=== PATIENT | female | born 1980 | race Caucasian/White ===

== ENCOUNTER → 2017-08-23 08:44 | Outpatient (CLI) | payer OTHER, SELFPAY ==
[2015-07-04 09:57] VITALS: BMI 33.0
[2015-07-06 18:52] VITALS: BP 120/68
--- NOTE | 2017-08-23 09:11 | RAD_ITS ---
STUDY: X-RAY - LEFT KNEE REASON FOR EXAM: Female, 36 years old. 3 month history of the medial knee pain. TECHNIQUE: 4 view(s) of the knee. COMPARISON: None. FINDINGS: Normal visualized distal femur. Normal visualized proximal tibia and fibula. Normal proximal tibiofibular articulation. Normal medial femorotibial compartment. Normal lateral femorotibial compartment. Normal patellofemoral articulation. The soft tissue structures are unremarkable. RAD/Knee 4 or More Views IMPRESSION: Normal x-ray examination of the knee. Electronically Signed: Maxwell Main MD at 12:46 EST Tel [phone], Service support ,
[2017-08-23 10:14] LABS: Absolute Lymphocyte Count 1.41 X10^3/ul (0.83-4.51); Absolute Neutrophil Count 2.7 X10^3/uL (2.0-7.7); Basophil# 0.02 X10^3/uL; Basophil% 0.4 % (0-1); Eosinophil# 0.09 X10^3/uL; Hematocrit 42.9 % (37-47); Hemoglobin 14.4 g/dl (12.0-15.0); Lymphocyte # 1.41 X10^3/ul (4.0); Lymphocyte % 30.7 % (19-41); Mean Corp Hgb Conc 33.6 g/gl (32-36); Mean Corpuscular Volume 89.4 fL (81-99); Mean Platelet Vol. 10.6 fl (6.2-12.0); Monocyte# 0.41 X10^3/uL; Monocyte% 8.9 % (0-10); Neutrophil # 2.66 X10^3/uL (2.7-7.7); POSITIVE DIFFERENTIAL NO; Platelet Count 197 K/mm3 (150-450); RBC Distribution Width CV 12.7 % (11.6-14.6); White Blood Count 4.6 K/mm3 (4.4-11.0)
[2017-08-23 10:15] LABS: POSITIVE COUNT NO; POSITIVE MORPHOLOGY NO
[2017-08-23 10:41] LABS: ALB/GLOB Ratio 1.4 RATIO (0.9-2.4); AST(SGOT) 8 U/L (15-37); Alanine Aminotransfer ALT/SGPT 23 U/L (13-56); Albumin, Serum 4.2 g/dL (3.2-5.0); Alkaline Phosphatase 47 U/L (45-117); Anion Gap 8 (5-15); BUN 10 mg/dL (7-18); BUN/Creat Ratio 15.3 RATIO (10-20); Calcium,Total 9.2 mg/dL (8.5-10.1); Chloride 102 mmol/L (98-107); Cholesterol 142 mg/dL (200); Creatinine, Serum 0.65 mg/dL (0.55-1.02); EST Glomerular Filtration Rate 107 mL/min (>60); Est Glom Filt Rate - Afr Amer 130 mL/min (>60); Globulin 3.1 g/dL (2.2-4.2); Glucose 90 mg/dL (74-106); High Density Lipoprotein 59 mg/dL; Potassium 4.4 mmol/L (3.5-5.1); Protein, Total 7.3 g/dL (6.4-8.2); Sodium Level 138 mmol/L (136-145); Thyroid Stim Hormone (TSH) 0.62 uIU/mL (0.358-3.74); Triglycerides 81 mg/dL; Very Low Density Lipoprotein 16 mg/dL (5-40)
== END ==
PROVIDERS: Family Provider Family Medicine; PCP Family Medicine; Visit Provider Family Medicine
DX: Z13.0 Encounter for screening for diseases of the blood and blood-forming organs and certain disorders involving the immune mechanism (principal); Z13.220 Encounter for screening for lipoid disorders; F41.9 Anxiety disorder, unspecified; M25.562 Pain in left knee
CPT/HCPCS: 36415; 73564; 80053; 80061; 84443; 85025

== ENCOUNTER → 2018-04-30 16:55 | Outpatient (CLI) | payer OTHER, SELFPAY ==
[2018-05-06 14:39] LABS: HPV Reflexed? NOT INDICATED
== END ==
PROVIDERS: Visit Provider Obstetrics & Gynecology
DX: Z12.4 Encounter for screening for malignant neoplasm of cervix (principal); N83.209 Unspecified ovarian cyst, unspecified side
CPT/HCPCS: 36415; 86304; 88175; G0145

== ENCOUNTER → 2019-04-28 09:26 | Outpatient (CLI) | payer BC, SELFPAY ==
[2015-07-04 09:57] VITALS: BMI 33.0
--- NOTE | 2019-04-28 09:32 | RAD_ITS ---
STUDY: X-RAY - LUMBAR SPINE REASON FOR EXAM: Female, 38 years old. Chronic back pain. TECHNIQUE: 5 view(s) of the lumbar spine were obtained. COMPARISON: None FINDINGS: Normal lumbar lordosis. There is no substantial scoliosis. There is a normal alignment of the vertebrae. Normal vertebral bodies and endplates. Normal disc space heights. IUD and clips in the pelvis. RAD/L/S Spine Min 4 Views IMPRESSION: No abnormality of the lumbosacral spine or visualized pelvis. Electronically Signed: Gokul Bernstein MD at 16:54 EDT , Service support ,
--- NOTE | 2019-04-28 09:32 | RAD_ITS ---
STUDY: X-RAY - SACROILIAC JOINTS REASON FOR EXAM: Female, 38 years old. Chronic back pain. TECHNIQUE: 3 view(s) of the sacroiliac joints were obtained. COMPARISON: None. FINDINGS: Normal bilateral sacroiliac joints. Normal visualized sacral ala and sacrum. Normal visualized iliac bones. IUD in the pelvis. Clips in the pelvis. RAD/S-I Jts 3 or More Views IMPRESSION: No abnormality of the sacroiliac joints. Electronically Signed: Gokul Bernstein MD at 16:54 EDT , Service support ,
== END ==
PROVIDERS: Family Provider Family Medicine; PCP Family Medicine; Referring Provider Family Medicine; Visit Provider Family Medicine
DX: M54.5 Low back pain (principal)
CPT/HCPCS: 72110; 72202

== ENCOUNTER → 2020-01-19 12:30 | Outpatient (CLI) | payer BC, SELFPAY ==
[2015-07-04 09:57] VITALS: BMI 33.0
== END ==
PROVIDERS: PCP Family Medicine; Visit Provider Family Medicine Hospice and Palliative Medicine
DX: Z11.59 Encounter for screening for other viral diseases (principal)
CPT/HCPCS: 87635; G2023; U0003

== ENCOUNTER → 2020-03-09 15:00 | Outpatient (CLI) | payer BC, SELFPAY ==
[2015-07-04 09:57] VITALS: BMI 33.0
[2020-03-15 04:48] LABS: HPV APTIMA, High Risk Negative (Negative); HPV Reflexed? NOT INDICATED
== END ==
PROVIDERS: PCP Family Medicine; Visit Provider Obstetrics & Gynecology
DX: Z12.4 Encounter for screening for malignant neoplasm of cervix (principal)
CPT/HCPCS: 88175; G0145

== ENCOUNTER → 2020-05-09 15:50 | Outpatient (CLI) | payer BC, SELFPAY ==
[2015-07-04 09:57] VITALS: BMI 33.0
--- NOTE | 2020-05-09 15:54 | RAD_ITS ---
STUDY: X-RAY - LUMBAR SPINE REASON FOR EXAM: Female, 39 years old. No back pain extending to the lower legs. TECHNIQUE: 5 view(s) of the lumbar spine were obtained. COMPARISON: None FINDINGS: Normal lumbar lordosis. There is no substantial scoliosis. There is a normal alignment of the vertebrae. Normal vertebral bodies and endplates. Normal disc space heights. There is no demonstrated fracture. There is no demonstrated spondylolysis of the pars interarticulares. There is an IUD in the pelvic region and metallic densities possibly due to previous tubal ligation. RAD/L/S Spine Min 4 Views IMPRESSION: Essentially unremarkable examination. Electronically Signed: Davin Kessler MD at 2:49 EDT Tel , Service support ,
== END ==
LOC: MTRAD 15:52
PROVIDERS: PCP Family Medicine; Referring Provider Nurse Practitioner Family; Visit Provider Nurse Practitioner Family
DX: M54.5 Low back pain (principal)
CPT/HCPCS: 72110

== ENCOUNTER → 2021-02-08 15:09 | Outpatient (CLI) | payer BC, SELFPAY ==
[2015-07-04 09:57] VITALS: BMI 33.0
[2021-02-08 17:41] LABS: Hematocrit 41.3 % (37-47); Hemoglobin 14.2 g/dL (12.0-15.0); Mean Corp Hgb Conc 34.4 g/dL (32-36); Mean Corpuscular Hgb 29.8 pg (27.0-32.0); Mean Corpuscular Volume 86.8 fL (81-99); Mean Platelet Vol. 10.5 fl (6.2-12.0); Platelet Count 262 K/mm3 (150-450); RBC Distribution Width CV 12.5 % (11.6-14.6); Red Blood Count 4.76 M/mm3 (4.2-5.4); White Blood Count 6.6 K/mm3 (4.4-11.0)
[2021-02-08 17:56] LABS: Anion Gap 7 (5-15); BUN 9 mg/dL (7-18); BUN/Creat Ratio 10.5 RATIO (10-20); Calcium,Total 9.3 mg/dL (8.5-10.1); Chloride 105 mmol/L (98-107); Cholesterol 167 mg/dL (200); Creatinine, Serum 0.86 mg/dL (0.55-1.02); EST Glomerular Filtration Rate 77 mL/min (>60); Est Glom Filt Rate - Afr Amer 93 mL/min (>60); Glucose 87 mg/dL (74-106); High Density Lipoprotein 50 mg/dL; Potassium 3.7 mmol/L (3.5-5.1); Sodium Level 139 mmol/L (136-145); Triglycerides 159 mg/dL; Very Low Density Lipoprotein 32 mg/dL (5-40)
== END ==
PROVIDERS: PCP Family Medicine; Referring Provider Nurse Practitioner Family; Visit Provider Nurse Practitioner Family
DX: Z00.00 Encounter for general adult medical examination without abnormal findings (principal); Z13.220 Encounter for screening for lipoid disorders
CPT/HCPCS: 36415; 80048; 80061; 85027

== ENCOUNTER → 2021-07-12 | Outpatient (CLI) | payer BC, SELFPAY ==
[2021-07-19 12:24] LABS: HPV Reflexed? NOT INDICATED
== END | disposition home or self-care (01) ==
LOC: LABSPEC 14:51
PROVIDERS: PCP Family Medicine; Visit Provider Obstetrics & Gynecology
DX: Z12.4 Encounter for screening for malignant neoplasm of cervix (principal)
CPT/HCPCS: 88175; G0145

== ENCOUNTER → 2021-11-07 | Outpatient (CLI) | payer OTHER, SELFPAY ==
--- NOTE | 2021-11-07 08:31 | BI_ITS ---
MAMMOGRAPHY - BILATERAL SCREENING REASON FOR EXAM: Female, 41 years old. Routine annual screening examination. PERTINENT HISTORY: Non-contributory. TECHNIQUE: Digital bilateral breast ollie (3D mammographic acquisition) in the CC and MLO projections. 2-D mediolateral oblique (MLO) and craniocaudad (CC) views of both breasts were obtained. CAD: Full Field Digital Mammography with Computer Added Detection was performed. COMPARISON: None. Baseline examination. FINDINGS: Breast Composition: The breasts are heterogeneously dense, which may obscure small masses. There are no dominant masses or suspicious calcifications. No other significant abnormalities are identified. BI/SCRN MAMM (CAD)W/OLLIE BILAT IMPRESSION: Negative screening mammogram. Yearly followup mammogram recommended. (A) ASSESSMENT CATEGORY: BIRADS Category 1: Negative. A letter regarding these results will be sent to the patient by the facility within 30 days. Approximately 10% of breast cancers are not detected by mammography. A normal mammogram should not delay biopsy of a clinically suspicious abnormality. [id number] Electronically Signed: Zackary Light, at 16:15 EDT ,
== END | disposition home or self-care (01) ==
LOC: OPBI 08:26
PROVIDERS: PCP Family Medicine; Referring Provider Obstetrics & Gynecology; Visit Provider Obstetrics & Gynecology
DX: Z12.31 Encounter for screening mammogram for malignant neoplasm of breast (principal)
CPT/HCPCS: 77063; 77067

== ENCOUNTER → 2022-11-30 | Outpatient (CLI) | payer OTHER, SELFPAY ==
--- NOTE | 2022-11-30 07:39 | BI_ITS ---
MAMMOGRAPHY - BILATERAL SCREENING REASON FOR EXAM: Female, 42 years old. Routine annual screening examination. PERTINENT HISTORY: Non-contributory. TECHNIQUE: Digital bilateral breast ollie (3D mammographic acquisition) in the CC and MLO projections. 2-D mediolateral oblique (MLO) and craniocaudad (CC) views of both breasts were obtained. CAD: Full Field Digital Mammography with Computer Added Detection was performed. COMPARISON: Comparison is made with prior study dated November 07, 2021. FINDINGS: Breast Composition: The breasts are heterogeneously dense, which may obscure small masses. There are no dominant masses or suspicious calcifications. No other significant abnormalities are identified. There has been no significant change since the prior study. BI/SCRN MAMM (CAD)W/OLLIE BILAT IMPRESSION: Stable bilateral screening mammogram. Yearly follow-up mammogram recommended. (A) ASSESSMENT CATEGORY: BIRADS Category 1: Negative. A letter regarding these results will be sent to the patient by the facility within 30 days. Approximately 10% of breast cancers are not detected by mammography. A normal mammogram should not delay biopsy of a clinically suspicious abnormality. [id number] Electronically Signed: Maxwell Main MD at 8:57 EDT ,
== END | disposition home or self-care (01) ==
LOC: OPBI 07:38
PROVIDERS: PCP Family Medicine; Referring Provider Family Medicine; Visit Provider Family Medicine
DX: Z12.31 Encounter for screening mammogram for malignant neoplasm of breast (principal)
CPT/HCPCS: 77063; 77067

== ENCOUNTER 2023-03-29 16:02 | Emergency (ER) | payer OTHER, SELFPAY ==
[2023-03-29 16:04] VITALS: BP 147/88; PULSE 72; RESP 18; TEMP 36.1; O2SAT 99; BMI 27.6
[2023-03-29 16:20] LABS: Absolute Lymphocyte Count 2.52 X10^3/uL (0.83-4.51); Absolute Neutrophil Count 5.5 X10^3/uL (2.0-7.7); Basophil# 0.07 X10^3/uL; Basophil% 0.8 % (0-1); Eosinophil# 0.15 X10^3/uL; Eosinophils% 1.7 % (0-5); Hematocrit 39.9 % (37-47); Hemoglobin 13.8 g/dL (12.0-15.0); Lymphocyte # 2.52 X10^3/ul (0.83-4.51); Lymphocyte % 28.3 % (19-41); Mean Corp Hgb Conc 34.6 g/dL (32-36); Mean Corpuscular Hgb 30.7 pg (27.0-32.0); Mean Corpuscular Volume 88.7 fL (81-99); Mean Platelet Vol. 9.7 fl (6.2-12.0); Monocyte# 0.65 X10^3/uL; Monocyte% 7.3 % (0-10); NRBC Flagged by Analyzer 0 % (0-5); Neutrophil # 5.48 X10^3/uL (2.7-7.7); Neutrophil % 61.7 % (47-70); Platelet Count 274 K/mm3 (150-450); RBC Distribution Width CV 12.6 % (11.6-14.6); RBC Distribution Width SD 41.5 fl (35.1-43.9); White Blood Count 8.9 K/mm3 (4.4-11.0)
[2023-03-29 16:36] LABS: ALB/GLOB Ratio 1.2 RATIO (0.9-2.4); AST(SGOT) 11 U/L (15-37); Alanine Aminotransfer ALT/SGPT 22 U/L (13-56); Alkaline Phosphatase 58 U/L (45-117); Anion Gap 5 (5-15); BUN 10 mg/dL (7-18); BUN/Creat Ratio 14.1 RATIO (10-20); Calcium,Total 9.3 mg/dL (8.5-10.1); Chloride 107 mmol/L (98-107); Creatinine, Serum 0.71 mg/dL (0.55-1.02); EST Glomerular Filtration Rate 95 mL/min (>60); Est Glom Filt Rate - Afr Amer 115 mL/min (>60); Estimated Creatinine Clearance 94.66 ml/min; Globulin 3.2 g/dL (2.2-4.2); Glucose 100 mg/dL (74-106); Potassium 3.9 mmol/L (3.5-5.1); Protein, Total 7.2 g/dL (6.4-8.2); Sodium Level 140 mmol/L (136-145)
--- NOTE | 2023-03-29 16:49 | CT_ITS ---
STUDY: CT ABDOMEN AND PELVIS WITH CONTRAST REASON FOR EXAM: Female, 42 years old. pain low abd and right flank RADIATION DOSAGE (If Supplied By Facility): CTDIvol = ( 16.17 ) mGy, DLP = ( 945.91 ) mGycm TECHNIQUE: Transaxial images were obtained from the dome of the diaphragm to the symphysis pubis without oral contrast. IV 100mL Isovue-300 was administered. Sagittal and coronal images were reconstructed. Individualized dose optimization techniques were used for this CT. COMPARISON: None. FINDINGS: Minor atelectasis within the dependent portion of the lower lungs. The visualized portions of the heart are within normal limits. Liver is normal in size. There are 2 cysts in left lobe. Bile ducts are nondilated. Normal gallbladder and extrahepatic biliary system. Normal spleen. Normal pancreas. Normal bilateral adrenal glands. Normal right kidney. Normal left kidney. Normal visualized stomach. Mild ileus with diffuse fecal retention in colon.. The appendix is visualized and appears normal. Normal abdominal aorta. Normal inferior vena cava. Normal retroperitoneum. Normal urinary bladder. Postop change status post bilateral tubal ligation. There are mild cystic changes in both adnexa and possibility of hydrosalpinx is not excluded.] A large cystic mass in the pelvis measuring approximately 6.12 x 8.25 x6.21 cm likely representing ovarian cyst IUD noted within the uterine canal extending to the level of the fundus Normal abdominal wall. Normal osseous structures. CT/Abdomen/Pelvis W IV Cont ONLY IMPRESSION: Mild ileus with diffuse fecal retention in colon.. Postsurgical changes status post bilateral tubal ligation with mild cystic changes in the adnexa bilaterally with possible coexisting hydrosalpinx.. Large cystic mass in the pelvis likely ovarian. Pelvic sonogram is recommended for further assessment Electronically Signed: Bran Garcia MD at 18:24 EDT ,
--- NOTE | 2023-03-29 16:50 | EDS_ITS ---
HPI HPI - GI History of Present Illness Chief Complaint: Abd Pain Informant: patient Narrative Narrative: Patient presents with abdominal pain. Patient states she was fine till about 2 or so hours ago. She started get pain in her right lower abdomen and her right side and back. She thought she might be constipated because a week or so ago she had been on Percocet for a tooth ache. She had been still moving her bowels though. Patient straining to move her bowels. She was able to move her bowels but the pain increased. She states she is nauseated but has not vomited. She cannot get comfortable. She denies history of kidney stone. She denies any trouble or change in urination. Patient has had an ectopic and tubal removal and then it sounds like she also had tubal ligation on other side. She has an IUD so she does not know when her last menstrual cycle was. She still has her appendix and gallbladder. She reportedly had an ileus once but is not clear exactly the source of this. [facility] Medical History Ileus, unspecified Home Medications cetirizine 10 mg capsule (Zyrtec) 10 mg PO DAILY 01/06/14 [History Last Taken 07/03/15 15:00] docusate sodium 100 mg capsule (DOK) 100 mg PO BID PRN PRN Constipation ##30 07/04/15 [Rx Last Taken Unknown] naproxen 250 mg tablet 1 - 2 mg (0.004 - 0.008 x 250 mg) PO BID PRN PRN Pain ##40 07/04/15 [Rx Last Taken Unknown] naproxen 500 mg tablet 500 mg PO BID #14 tabs 03/29/23 [Rx Last Taken Unknown] ondansetron 4 mg disintegrating tablet 4 mg PO Q8H PRN PRN Nausea #10 tabs 03/29/23 [Rx Last Taken Unknown] oxycodone-acetaminophen 5 mg-325 mg tablet 1 tab PO Q6H PRN PRN Pain 3 days #12 TABLETS 03/29/23 [Rx Last Taken Unknown] Allergy/AdvReac Type Severity Reaction Status Date / Time No Known Allergies Allergy Verified 03/29/23 16:04 Social History Smoking Status: Former smoker ROS ROS ED ROS Narrative A complete review of systems was performed and is negative except as documented in the history of present illness. Some specific details below. Constitutional: No recent fevers or chills. No malaise. She felt perfectly fine until this pain started a couple hours ago EYE: No visual complaints or pain. ENT: No difficulty swallowing. No swelling. No pain. No GERD. CV: No chest pain or palpitations. Respiratory: No dyspnea. No hemoptysis. No difficulty taking breaths. GI: Please see history of present illness. : No frequency dysuria or hematuria. Musculoskeletal: No recent trauma. No pains. Skin: No rash. Nondiaphoretic. Neuro: No weakness or numbness. Endocrine: No polyuria or polydipsia. EXAM Physical Exam Narrative Exam Narrative: CONSTITUTIONAL: Patient is nontoxic in appearance. But the patient does look uncomfortable. She is moving back and forth on the bed. She has trouble sitting still due to the pain. HEENT: No notable trauma. Mucous membranes moist. EYES: No conjunctival injection. No proptosis. No icterus. CARDIOVASCULAR: Regular rate. Regular rhythm. No notable murmur. No JVD. RESPIRATORY: No respiratory distress. Breathing is unlabored. No wheezes. No rho nchi. No rales. No pain with a deep breath. GASTROINTESTINAL: Not distended. Bowel sounds are normal. Despite her discomfort, she does not have any marked tenderness. She does seem to have pain at the right lateral and lower quadrant area but is not notably tender. But she does have some right-sided CVA tenderness. GENITOURINARY: No tenderness over the bladder. She does have right sided CVA t enderness. No skin changes. MUSCULOSKELETAL: Atraumatic. No peripheral edema. No cord. No tenderness along the deep venous system. No asymmetry. NEUROLOGICAL: Patient is alert and appropriate. No focal deficit noted. SKIN: No noted rashes. No diaphoresis. PSYCHIATRIC: Patient is calm. Mood is appropriate. Const Vital Signs: 03/29/23 16:04 03/29/23 17:28 Temperature 96.9 F L Temperature Source Temporal Pulse Rate 72 78 Respiratory Rate 18 14 Blood Pressure 147/88 H 139/78 H Blood Pressure Mean 107 98 Pulse Ox 99 98 Oxygen Delivery Method Room Air Room Air MDM MDM MDM Narrative Medical decision making narrative: Patient CBC is normal. Patient's electrolytes are normal. Patient's liver function test are normal. Patient's lipase normal. Patient's serum is negative. Patient's urinalysis shows no acute process. My independent interpretation of her CT scan of the abdomen does show cystic structure in the pelvis. No sign of obstruction. Final reading did mention mild ileus. However, the patient is moved her bowels today is passing gas and has good bowel sounds and is not distended. She only was nauseated once when the pain was very bad. Patient's ultrasound does show a large 7 cm ovarian cyst but no sign of torsion. Now that the patient has had pain meds she is feeling better. She got several doses. She is now isolating the pain to the right lower abdomen. But she has no fever white count and her appendix is seen and is normal. I think this pain is likely from her cyst. She has a history of a prior cyst on that size even larger than this. She states it was the size of a grapefruit. But they think that likely resolved. That was almost 7 years ago. I think we get the patient home. She is able to eat and drink. She is moving her bowels. She will take senna at home which she has. Increase fluids. I do not think her symptoms really come from the ileus. I will give her Toradol here to see if we get her pain even better. We will give her Naprosyn to go. I will write for some narcotics for the pain but I have encouraged her to try to avoid using this because she has had some constipation recently. If she has worsening pain, distention, vomiting, fevers or any other issues she should return. We did discuss that she needs to follow-up for the cyst. It is certainly possible that this could rupture or it may involute or it may end up needing surgery in the future. Lab Data Attestation: I reviewed the patient's lab results. Labs: Laboratory Results - last 24 hr 03/29/23 03/29/23 03/29/23 16:11 16:50 17:20 WBC 8.9 RBC 4.50 Hgb 13.8 Hct 39.9 MCV 88.7 MCH 30.7 MCHC 34.6 RDW Std Deviation 41.5 RDW Coeff of Dusty 12.6 Plt Count 274 MPV 9.7 Immature Gran % (Auto) 0.200 Neut % (Auto) 61.7 Lymph % (Auto) 28.3 Butts % (Auto) 7.3 Eos % (Auto) 1.7 Baso % (Auto) 0.8 Absolute Neuts (auto) 5.5 Absolute Lymphs (auto) 2.52 Nucleated RBC % 0 Sodium 140 Potassium 3.9 Chloride 107 Carbon Dioxide 28.0 Anion Gap 5 BUN 10 Creatinine 0.71 Estim Creat Clear Calc 94.66 Est GFR (MDRD) Af Amer 115 Est GFR (MDRD) Non-Af 95 BUN/Creatinine Ratio 14.1 Glucose 100 Calcium 9.3 Total Bilirubin 0.20 AST 11 L ALT 22 Alkaline Phosphatase 58 Total Protein 7.2 Albumin 4.0 Globulin 3.2 Albumin/Globulin Ratio 1.2 Lipase 40 Serum , Qual NEGATIVE Urine Color Yellow Urine Clarity Sl. Cloudy Urine pH 7.0 Ur Specific [place] 1.015 Urine Protein 15 H Urine Glucose (UA) Normal Urine Ketones Negative Urine Occult Blood 10 H Urine Nitrite Negative Urine Bilirubin Negative Urine Urobilinogen Normal Ur Leukocyte Esterase 25 H Urine RBC 0 SEEN Urine WBC 0 SEEN Ur Squamous Epith Cells 0-5 SEEN Amorphous Sediment 1+ Urine Bacteria RARE Urine Mucus 0 SEEN Radiography Diagnostic Testing: Clinical Impression(s) from Imaging Studies Abdomen/Pelvis CT 03/29/23 16:49 IMPRESSION: Mild ileus with diffuse fecal retention in colon.. Postsurgical changes status post bilateral tubal ligation with mild cystic changes in the adnexa bilaterally with possible coexisting hydrosalpinx.. Large cystic mass in the pelvis likely ovarian. Pelvic sonogram is recommended for further assessment Electronically Signed: Bran Garcia MD at 18:24 EDT Reading Location ID and State: [place] / [place] Tel [phone], Service support , Transvaginal US 03/29/23 18:32 IMPRESSION: Large right ovarian cyst measuring 7.1 x 7.8 x 4.4 cm. Multiple small cysts in left ovary largest measuring 2.8 x 2.6 x 2.3 cm Electronically Signed: Bran Garcia MD at 19:22 EDT Reading Location ID and State: [place] Tel [phone], Service support , ADDENDUM: 03/29/232005 IMPRESSION: undefined Discharge Plan Triage Chief Complaint: Abd Pain ED Provider: Frankie Arthur Dx/Rx/DC Orders Clinical Impression: Abdominal pain, Cyst of right ovary Instructions: ED Abdominal Pain Unkn Cause Fem, ED Ovarian Cyst Prescriptions: New oxycodone-acetaminophen [oxycodone-acetaminophen] 5-325 mg tablet 1 tab PO Q6H PRN PRN (Reason: Pain) 3 Days Qty: 12 0RF naproxen 500 mg tablet 500 mg PO BID Qty: 14 0RF ondansetron [ondansetron] 4 mg tablet,disintegrating 4 mg PO Q8H PRN PRN (Reason: Nausea) Qty: 10 0RF No Action cetirizine [Zyrtec] 10 MG capsule 10 mg PO DAILY naproxen 250 MG tablet 1 - 2 mg PO BID PRN PRN (Reason: Pain) Qty: 40 0RF docusate sodium [DOK] 100 MG capsule 100 mg PO BID PRN PRN (Reason: Constipation) Qty: 30 0RF Primary Care Provider: Delvin Garcia Referrals: Delvin Garcia MD [Primary Care Provider] - Viviana Cronin MD [Med Staff - Active Staff] - As soon as possible Disposition Disposition: Home, Self Care
[2023-03-29] MEDS: Morphine 4 MG/ML Syringe IV ×3 (16:55→19:19)
[2023-03-29] MEDS: 0.9% Normal Saline (1000mL) 1,000 ML 1000 ML IV (16:55)
[2023-03-29] MEDS: Ondansetron 4 MG/2 ML Vial IV (16:55)
[2023-03-29 16:57] LABS: Mucous, Urine 0 SEEN /hpf (<or=2+); Red Blood Cells-Urine 0 SEEN /hpf (0-5); White Blood Cells 0 SEEN /hpf (0-5)
[2023-03-29 17:04] LABS: Color, Urine Yellow (Yellow); Glucose, Dipstick Normal (Normal); Ketone-Dipstick Negative (Negative); Leukocyte Esterase-Dipstick 25 /ul (Negative); Nitrite-Dipstick Negative (Negative); Occult Blood-Urine 10 /ul (Negative); Protein-Dipstick 15 mg/dl (Negative); Specific Gravity, Urine 1.015 (1.002-1.030); Urine Bilirubin Dipstick Negative (Negative); Urine Clarity Sl. Cloudy (Clear); Urine Urobilinogen Normal (Normal)
[2023-03-29 17:04] LABS: Lipase 40 U/L (13-75)
[2023-03-29 17:21] LABS: Amorphous Sediment 1+; Squamous Epithelial Cells - UA 0-5 SEEN /hpf (5-10)
[2023-03-29 17:22] LABS: Bacteria RARE /hpf (None Seen)
[2023-03-29 17:28] VITALS: BP 139/78; PULSE 78; RESP 14; O2SAT 98
[2023-03-29 17:48] LABS: Internal QC Validated? YES +Cl - CLEAR BKGD; Pregnancy, Serum, hCG Quali. NEGATIVE Negative
--- NOTE | 2023-03-29 18:32 | US_ITS ---
STUDY: ULTRASOUND TRANSVAGINAL CLINICAL: Female, 42 years old. cystic mass with pain TECHNIQUE: Transvaginal COMPARISON: None. FINDINGS: Normal uterine size measuring 11.5 x 6.4 x 4.1 cm in maximal craniocaudal dimension. There are no myometrial masses. Normal endometrial thickness measuring 2 mm. There are no endometrial masses, and there is no fluid in the endometrial cavity. IUD noted within the endometrial canal Normal uterine cervix. Normal right ovary, measuring 8.2 x 8.4 x 4.8 cm. Large cyst measuring 7.1 x 7.8 x 4.4 cm Normal left ovary, measuring 4.3 x 3.7 x 3.5 cm. There are multiple follicles with dominant cyst measuring 2.8 x 2.6 x 2.3 cm There is no free fluid in the pelvis. US/Transvaginal Non- IMPRESSION: Large right ovarian cyst measuring 7.1 x 7.8 x 4.4 cm. Multiple small cysts in left ovary largest measuring 2.8 x 2.6 x 2.3 cm Electronically Signed: Bran aGrcia MD at 19:22 EDT ,
[2023-03-29] MEDS: Ketorolac 15 MG/ML Vial IV (21:06)
[2023-03-29 21:09] VITALS: BP 124/77; PULSE 78; RESP 14; O2SAT 98
== END 2023-03-29 21:23 | disposition home or self-care (01) ==
PROVIDERS: Emergency Provider Emergency Medicine; PCP Family Medicine; Visit Provider Emergency Medicine
DX: N83.201 Unspecified ovarian cyst, right side (principal); R10.9 Unspecified abdominal pain; Z87.891 Personal history of nicotine dependence
CPT/HCPCS: 74177; 76830; 80053; 81001; 83690; 84703; 85025; 96361; 96374; 96375; 96376; 99283; J7030; Q9967; A4216; J2405

== ENCOUNTER 2025-02-25 05:19 | Day surgery (SDC) | payer OTHER, SELFPAY ==
--- NOTE | 2025-02-10 08:43 | HP.PCM_ITS ---
History and Physical Date of Admission: 02/25/25 HPI: The patient is a 44 year old female presenting for pre-operative visit. She is scheduled for laparoscopic RSO and left salpingectomy, for sterilization request and right ovarian cyst and pelvic pain on 02/25/25. Procedure discussed along with risks, benefits and complications. Other alternatives discussed for management. Consent form signed? Yes. ? ? PAST MEDICAL HISTORY PAST MEDICAL HISTORYDiagnosisDate?Anxiety state??Pty reported depression ?Bilateral ovarian cysts??Pt reported ? ? PAST SURGICAL HISTORY PAST SURGICAL HISTORYProcedureLateralityDate?ECTOPIC - TREATMENT???LIGATE FALLOPIAN TUBEBilateral??TONSILLECTOMY & ADENOIDECTOMY <AGE 12???VAGINOSCOPY?02/10/2004 ? ? ? CURRENT MEDICATIONS Current Outpatient MedicationsMedicationSigDispenseRefill?tiZANidine (ZANAFLEX) 4 mg tabletTake 1 tablet by mouth every 12 (twelve) hours.???levonorgestrel (LILETTA) 20.4 mcg/24 hrs (8 yrs) 52 mg IUD1 each by INTRAUTERINE route one time only. Placed 03/29/2023???phentermine-topiramate ER (QSYMIA) 15-92 mg 24 Hr CapsuleTake 1 capsule by mouth once daily. (Patient not taking: Reported on 02/09/2025)???Phentermine HCl 30 mg capsuleTake 30 mg by mouth daily before breakfast. (Patient not taking: Reported on 12/14/2024)???venlafaxine ER (EFFEXOR XR) 150 mg 24 hr capsuleTake 1 capsule by mouth every afternoon. (Patient not taking: Reported on 02/09/2025)???naproxen (NAPROSYN) 500 mg tabletTake 500 mg by mouth twice daily as needed. (Patient not taking: Reported on 02/09/2025)???No current facility-administered medications for this visit. ? ? ALLERGIES: Patient has no known allergies. ? PERSONAL HISTORY: SOCIAL HISTORY Social History?Tobacco Use?Smoking status:Former??Types:Cigarettes?Smokeless tobacco:NeverVaping Use?Vaping status:Never UsedSubstance Use Topics?Alcohol use:Yes??Comment: occasional?Drug use:Never ? FAMILY HISTORY: FAMILY HISTORY FAMILY HISTORY ProblemRelationAge of Onset?Cervical CancerMother??DiabetesFather??HypertensionFather??Heart diseaseFather?? CAD ?Crohn's DiseaseBrother??HypertensionMaternal Grandmother??HypertensionMaternal Grandfather? ? ? REVIEW OF SYMPTOMS: GENERAL: denies fevers or chills ENDOCRINOLOGY: has not been on steroids Cardiology : denies palpitations or chest pain Respiratory: denies SOB or cough Hematology: denies history of prolonged bleeding or easy bruising or VTE Allergy: Denies history of personal or family history of allergy to anesthesia ? PHYSICAL EXAMINATION: ? VITALS: Blood pressure 106/72, pulse 75, height 168.3 cm (5' 6.25), weight 83.5 kg (184 lb), SpO2 97%. ? GENERAL: The patient is well nourished, well hydrated in no acute distress. , The patient is oriented to time, place, and person. NECK: Supple. No lynphadenopathy, normal thyroid, no thyromegaly. LUNGS: Clear to auscultation bilaterally. no wheezes, rhonchi or rales HEART: Regular rate and rhythm, Normal heart sounds, and No murmurs or gallops ? IMPRESSION:pelvic pain, right ovarian cyst, sterilzation request ? PLAN: The risks/benefits/alternatives and personal involved for the planned laparoscopic RSO, left salpingectomy were reviewed with the patient. Her questions were answered to her satisfaction and she desires to proceed. Consent was signed. I reviewed with her postop instructions and expectations. ? ? I have reviewed and updated past medical and surgical history, medications and allergies Assessment & Plan Assessment/Plan (1) Pelvic pain: (2) Sterilization:
[2025-02-25] VITALS (8 sets, daily range): BP systolic 98–116; BP diastolic 55–73; PULSE 60–71; RESP 16–18; TEMP 36.1–37.1; O2SAT 98–100; BMI 29.9
--- OUTSIDE RECORDS SUMMARY | 2025-02-25 05:23 | XMS RPT_ITS | CCD ---
Author Organization [facility] Care Team Providers Care Senior Interactive Developer Name Role Phone Unavailable Primary Care Provider CIARA Marshall Attending Unavailable CIARA NUGENT Referring Unavailable CIARA NUGENT Referring Unavailable CIARA NUGENT Attending Unavailable BRIAN GALINDO Attending Unavailable Brian Galindo Attending Unavailable Delvin Garcia Primary Care Unavailable Medications Current Medications Medication Drug Class(es) Dates Sig (Normalized) Sig (Original) acetaminophen 325 mg / oxyCODONE hydrochloride 5 mg oral tablet (1 source) Opioid Agonist Start: 03-29-2023 take 1 tablet by mouth every six hours as needed Oxycodone-Acetamino phen Active 1 TABLET PO EVERY 6 HOURS NEEDED 12 March 29, 2023 cetirizine hydrochloride 10 mg oral capsule (3 sources) Histamine-1 Receptor Antagonist Start: 01-06-2014 take 1 capsule by mouth once daily Cetirizine (Zyrtec) 10 MG capsule Active 10 MG PO DAILY January 06, 2014 12:00am docusate sodium 100 mg oral capsule (3 sources) Start: 07-04-2015 take 1 capsule by mouth twice daily as needed Docusate Sodium (Colace) 100 MG capsule Active 100 MG PO TWICE DAILY NEEDED July 04, 2015 1:00am levonorgestrel 0.890499 mg/hr intrauterine system (9 sources) Progestin, Progestin-containi ng Intrauterine Device levonorgestrel (LILETTA) 20.4 mcg/24 hrs (8 yrs) 52 mg IUD 1 each by INTRAUTERINE route one time only. Placed 03/29/2023 Active Comment on above: 1 Each by INTRAUTERI NE route one time only. naproxen 500 mg oral tablet (13 sources) Nonsteroidal Anti-inflammatory Drug Start: 03-29-2023 End: 02-10-2025 take 1 tablet by mouth every twelve hours as needed naproxen (NAPROSYN) 500 mg tablet Take 500 mg by mouth twice daily as needed. 03/29/2023 02/10/2025 Discontinued (Other) Start: 07-04-2015 take 1-2 mg by mouth twice daily as needed Naproxen Active 1 - 2 MG PO TWICE DAILY NEEDED July 04, 2015 1:00am Comment on above: Take 500 mg by mouth twice daily as needed. ondansetron 4 mg disintegrating oral tablet (1 source) Serotonin-3 Receptor Antagonist Start: take 4 mg by mouth every eight hours as needed Ondansetron Active 4 MG PO EVERY 8 HOURS NEEDED March 29, 2023 12:00am phentermine hydrochloride 30 mg oral capsule (6 sources) Sympathomimetic Amine Anorectic End: take 1 capsule by mouth once daily before breakfast Phentermine HCl 30 mg capsule Take 30 mg by mouth daily before breakfast. 02/10/2025 Discontinued (Other) 24 hr phentermine 15 mg / topiramate 92 mg extended release oral capsule (3 sources) Sympathomimetic Amine Anorectic End: take 1 capsule by mouth once daily phentermine-topiram ate ER (QSYMIA) 15-92 mg 24 Hr Capsule Take 1 capsule by mouth once daily. 02/10/2025 Discontinued (Other) tiZANidine 4 mg oral tablet (9 sources) Central alpha-2 Adrenergic Agonist Start: take 1 tablet by mouth every twelve hours tiZANidine (ZANAFLEX) 4 mg tablet Take 1 tablet by mouth every 12 (twelve) hours. 03/13/2023 Active Comment on above: Take 1 tablet by era every 12 (twelve) hours. 24 hr venlafaxine 150 mg extended release oral capsule (9 sources) Serotonin and Norepinephrine Reuptake Inhibitor Start: End: take 1 capsule by mouth every hour venlafaxine ER (EFFEXOR XR) 150 mg 24 hr capsule Take 1 capsule by mouth every afternoon. 03/25/2023 02/10/2025 Discontinued (Other) Comment on above: Take 1 capsule by mo [facility] every afternoon. Problems Problem Classification Problem Date Documented Date Episodic/Chronic Abdominal pain (11 sources) Abdominal pain; Translations: [Unspecified abdominal pain] Onset: 11-30-2024 01-07-2014 Episodic Contraceptive and procreative management (1 source) Encounter for sterilization; Translations: [Encounter for sterilization] Onset: 02-18-2025 Episodic Immunizations and screening for infectious disease (4 sources) Patient encounter status; Translations: [Encounter for screening for human papillomavirus (HPV)] Onset: 11-30-2024 11-30-2024 Episodic Other screening for suspected conditions (not mental disorders or infectious disease) (3 sources) Cancer cervix screening status; Translations: [Encounter for screening for malignant neoplasm of cervix] Onset: 11-30-2024 11-30-2024 Episodic Ovarian cyst (7 sources) Cyst of ovary; Translations: [Unspecified ovarian cyst, right side] Onset: 12-14-2024 03-29-2023 Episodic Unclassified (2 sources) Patient encounter status 11-30-2024 Results Test Name Value Interpretation Reference Range Facility CNOVon 02-09-2025 CNOV Office Visit (OBGYWM) BRENDA ROSS ([id number]) 1980 F Date Time Provider Department 02/09/25 2:00 PM BRIAN GALINDO OBGYWM During your visit today, we recorded the following information about you: Pulse Blood pressure Weight Height 75/minute 106/72 83.5 kg 1.683 m Brian Galindo MD 02/10/2025 8:41 AM Signed Pre-Op History and Physical HPI: The patient is a 44 year old female presenting for pre-operative visit. She is scheduled for laparoscopic RSO and left salpingectomy, for sterilization request and right ovarian cyst and pelvic pain on 02/25/25. Procedure discussed along with risks, benefits and complications. Other alternatives discussed for management. Consent form signed? Yes. PAST MEDICAL HISTORY Diagnosis Date Anxiety state Pty reported depression Bilateral ovarian cysts Pt reported PAST SURGICAL HISTORY Procedure Laterality Date ECTOPIC - TREATMENT LIGATE FALLOPIAN TUBE Bilateral TONSILLECTOMY AND ADENOIDECTOMY VAGINOSCOPY 02/10/2004 Current Outpatient Medications Medication Sig Dispense Refill tiZANidine (ZANAFLEX) 4 mg tablet Take 1 tablet by mouth every 12 (twelve) hours. levonorgestrel (LILETTA) 20.4 mcg/24 hrs (8 yrs) 52 mg IUD 1 each by INTRAUTERINE route one time only. Placed 03/29/2023 phentermine-topirama te ER (QSYMIA) 15-92 mg 24 Hr Capsule Take 1 capsule by mouth once daily. (Patient not taking: Reported on 02/09/2025) Phentermine HCl 30 mg capsule Take 30 mg by mouth daily before breakfast. (Patient not taking: Reported on 12/14/2024) venlafaxine ER (EFFEXOR XR) 150 mg 24 hr capsule Take 1 capsule by mouth every afternoon. (Patient not taking: Reported on 02/09/2025) naproxen (NAPROSYN) 500 mg tablet Take 500 mg by mouth twice daily as needed. (Patient not taking: Reported on 02/09/2025) No current facility-administere d medications for this visit. ALLERGIES: Patient has no known allergies. PERSONAL HISTORY: Social History Tobacco Use Smoking status: Former Types: Cigarettes Smokeless tobacco: Never Vaping Use Vaping status: Never Used Substance Use Topics Alcohol use: Yes Comment: occasional Drug use: Never FAMILY HISTORY: FAMILY HISTORY Problem Relation Age of Onset Cervical Cancer Mother Diabetes Father Hypertension Father Heart disease Father CAD Crohn's Disease Brother Hypertension Maternal Grandmother Hypertension Maternal Grandfather REVIEW OF SYMPTOMS: GENERAL: denies fevers or chills ENDOCRINOLOGY: has not been on steroids Cardiology : denies palpitations or chest pain Respiratory: denies SOB or cough Hematology: denies history of prolonged bleeding or easy bruising or VTE Allergy: Denies history of personal or family history of allergy to anesthesia PHYSICAL EXAMINATION: VITALS: Blood pressure 106/72, pulse 75, height 168.3 cm (5' 6.25), weight 83.5 kg (184 lb), SpO2 97%. GENERAL: The patient is well nourished, well hydrated in no acute distress. , The patient is oriented to time, place, and person. NECK: Supple. No lynphadenopathy, normal thyroid, no thyromegaly. LUNGS: Clear to auscultation bilaterally. no wheezes, rhonchi or rales HEART: Regular rate and rhythm, Normal heart sounds, and No murmurs or gallops IMPRESSION:pelvic pain, right ovarian cyst, sterilzation request PLAN: The risks/benefits/alter natives and personal involved for the planned laparoscopic RSO, left salpingectomy were reviewed with the patient. Her questions were answered to her satisfaction and she desires to proceed. Consent was signed. I reviewed with her postop instructions and expectations. I have reviewed and updated past medical and surgical history, medications and allergies Brian Galindo M.D. Brian Galindo MD 02/10/2025 8:41 AM Signed Brenda Ross is a 44 year old female who presents for problem visit for f/u ovarian cyst and pelvic pain. HPI: 44 YOF notes since last 9 years ago had cyst on ovary and she doesn't think it ever went away. Saw Dr. Kang in the past and has followed it but she feels when it enlarges or is inflamed, sometimes more painful than others. Sometimes sharp and severe, sometimes some low back pain that seems cyclical. Some pain w/ intercourse and exams. Has one fallopian tube removed, thinks it is the left, had tubal as well. Has Liletta IUD and no menses w/ that. Does well. Does not plan future pregnancies. Has had current Liletta about 2 years. 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 PAST MEDICAL HISTORY Diagnosis Date Anxiety state Pty reported depression Bilateral ovari (more content not included)... Normal [facility] HISTORY PHYSICALon HISTORY PHYSICAL HNO ID: [id number] Author: BRIAN GALINDO MD Service: ? Author Type: Physician Type: H&P Filed: 02/10/2025 08:41 Note Text: Pre-Op History and Physical HPI: The patient is a 44 year old female presenting for pre-operative visit. She is scheduled for laparoscopic RSO and left salpingectomy, for sterilization request and right ovarian cyst and pelvic pain on 02/25/25. Procedure discussed along with risks, benefits and complications. Other alternatives discussed for management. Consent form signed? Yes. PAST MEDICAL HISTORY Diagnosis Date Anxiety state Pty reported depression Bilateral ovarian cysts Pt reported PAST SURGICAL HISTORY Procedure Laterality Date ECTOPIC - TREATMENT LIGATE FALLOPIAN TUBE Bilateral TONSILLECTOMY AND ADENOIDECTOMY VAGINOSCOPY 02/10/2004 Current Outpatient Medications Medication Sig Dispense Refill tiZANidine (ZANAFLEX) 4 mg tablet Take 1 tablet by mouth every 12 (twelve) hours. levonorgestrel (LILETTA) 20.4 mcg/24 hrs (8 yrs) 52 mg IUD 1 each by INTRAUTERINE route one time only. Placed 03/29/2023 phentermine-topirama te ER (QSYMIA) 15-92 mg 24 Hr Capsule Take 1 capsule by mouth once daily. (Patient not taking: Reported on 02/09/2025) Phentermine HCl 30 mg capsule Take 30 mg by mouth daily before breakfast. (Patient not taking: Reported on 12/14/2024) venlafaxine ER (EFFEXOR XR) 150 mg 24 hr capsule Take 1 capsule by mouth every afternoon. (Patient not taking: Reported on 02/09/2025) naproxen (NAPROSYN) 500 mg tablet Take 500 mg by mouth twice daily as needed. (Patient not taking: Reported on 02/09/2025) No current facility-administere d medications for this visit. ALLERGIES: Patient has no known allergies. PERSONAL HISTORY: Social History Tobacco Use Smoking status: Former Types: Cigarettes Smokeless tobacco: Never Vaping Use Vaping status: Never Used Substance Use Topics Alcohol use: Yes Comment: occasional Drug use: Never FAMILY HISTORY: FAMILY HISTORY Problem Relation Age of Onset Cervical Cancer Mother Diabetes Father Hypertension Father Heart disease Father CAD Crohn's Disease Brother Hypertension Maternal Grandmother Hypertension Maternal Grandfather REVIEW OF SYMPTOMS: GENERAL: denies fevers or chills ENDOCRINOLOGY: has not been on steroids Cardiology : denies palpitations or chest pain Respiratory: denies SOB or cough Hematology: denies history of prolonged bleeding or easy bruising or VTE Allergy: Denies history of personal or family history of allergy to anesthesia PHYSICAL EXAMINATION: VITALS: Blood pressure 106/72, pulse 75, height 168.3 cm (5' 6.25), weight 83.5 kg (184 lb), SpO2 97%. GENERAL: The patient is well nourished, well hydrated in no acute distress. , The patient is oriented to time, place, and person. NECK: Supple. No lynphadenopathy, normal thyroid, no thyromegaly. LUNGS: Clear to auscultation bilaterally. no wheezes, rhonchi or rales HEART: Regular rate and rhythm, Normal heart sounds, and No murmurs or gallops IMPRESSION:pelvic pain, right ovarian cyst, sterilzation request PLAN: The risks/benefits/alter natives and personal involved for the planned laparoscopic RSO, left salpingectomy were reviewed with the patient. Her questions were answered to her satisfaction and she desires to proceed. Consent was signed. I reviewed with her postop instructions and expectations. I have reviewed and updated past medical and surgical history, medications and allergies Brian Galindo M.D. [facility] 12-22-2024 [facility] Telephone (OBGYWM) BRENDA ROSS ([id number]) 1980 F Date Time Provider Department 12/22/24 BRIAN GALINDO OBFARHAT During your visit today, we recorded the following information about you: Nuria Zarco LPN 12/22/2024 3:22 PM Signed Left message to call office. Next available surgery dates at [facility] are 01/22/25, 02/11/25, and 02/25/25. Patient will need a pre-operative appointment scheduled with Dr. Galindo Allergies As of Date: 12/22/2024 (No Known Allergies) Date Reviewed: 12/14/2024 Reviewed by: Nuria Zarco LPN - Fully Assessed Reason for Visit: Schedule Surgery [1330] Prescriptions as of 01/13/2025 - phentermine-topirama te ER (QSYMIA) 15-92 mg 24 Hr Capsule Take 1 capsule by mouth once daily. - Phentermine HCl 30 mg capsule Take 30 mg by mouth daily before breakfast. - venlafaxine ER (EFFEXOR XR) 150 mg 24 hr capsule Take 1 capsule by mouth every afternoon. - tiZANidine (ZANAFLEX) 4 mg tablet Take 1 tablet by mouth every 12 (twelve) hours. - naproxen (NAPROSYN) 500 mg tablet Take 500 mg by mouth twice daily as needed. - levonorgestrel (LILETTA) 20.4 mcg/24 hrs (8 yrs) 52 mg IUD 1 each by INTRAUTERINE route one time only. Placed 03/29/2023 Problem List As Of Date: 12/22/2024 (None) Encounter Status:Closed by NURIA ZARCO on 01/13/25 [facility] CNOVon 12-14-2024 CNOV Office Visit (OBGYWM) TISHABRENDA BRUNER ([id number]) 1980 F Date Time Provider Department 12/14/24 9:10 AM CIARA NUGENT OBGYWEhsan During your visit today, we recorded the following information about you: Ciara Nugetn MD 12/14/2024 9:43 AM Signed Brenda Ross is a 44 year old female who presents for problem visit for a persistent Right ovarian cyst with minimal complexity but that has persisted for ~ 9 years and noting hx of a right ectopic 20 years ago with salpingectomy. The issue has become increasingly problematic with episodes of severe pelvic pain with constant dull pain. 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 PAST MEDICAL HISTORY Diagnosis Date Anxiety state Pty reported depression Bilateral ovarian cysts Pt reported PAST SURGICAL HISTORY Procedure Laterality Date ECTOPIC - TREATMENT LIGATE FALLOPIAN TUBE Bilateral TONSILLECTOMY AND ADENOIDECTOMY VAGINOSCOPY 02/10/2004 FAMILY HISTORY Problem Relation Age of Onset Cervical Cancer Mother Diabetes Father Hypertension Father Hypertension Maternal Grandmother Hypertension Maternal Grandfather Social History Tobacco Use Smoking status: Former Types: Cigarettes Smokeless tobacco: Never Vaping Use Vaping status: Never Used Substance Use Topics Alcohol use: Yes Comment: occasional Drug use: Never Current Outpatient Medications Medication Sig phentermine-topirama te ER (QSYMIA) 15-92 mg 24 Hr Capsule Take 1 capsule by mouth once daily. Phentermine HCl 30 mg capsule Take 30 mg by mouth daily before breakfast. (Patient not taking: Reported on 12/14/2024) venlafaxine ER (EFFEXOR XR) 150 mg 24 hr capsule Take 1 capsule by mouth every afternoon. tiZANidine (ZANAFLEX) 4 mg tablet Take 1 tablet by mouth every 12 (twelve) hours. naproxen (NAPROSYN) 500 mg tablet Take 500 mg by mouth twice daily as needed. levonorgestrel (LILETTA) 20.4 mcg/24 hrs (8 yrs) 52 mg IUD 1 each by INTRAUTERINE route one time only. Placed 03/29/2023 No current facility-administere d medications for this visit. Allergies As of Date: 12/14/2024 (No Known Allergies) Fully Assessed 12/14/2024 REVIEW OF SYSTEMS Abdomen: No bloating, early satiety, indigestion, or increased flatulence. No abdominal pain, nausea, vomiting, diarrhea, or constipation. Bladder: No dysuria, gross hematuria, urinary frequency, urinary urgency, or incontinence. Breast: No breast lumps, nipple d/c, overlying skin changes, redness or skin retraction. Expanded ROS: N/A Allergies and current medication updated:Yes SENSITIVE EXAM: Sensitive exam not performed. EXAM: There were no vitals taken for this visit. GENERAL: pleasant, female in no apparent distress Normal appearing anteverted, axial, retroverted, mobile and tilted uterus that measures 83 mm x 47 mm x 70 mm. Endometrium measures 13.7 mm. 3D rendering of the uterus confirms the proper location of the IUD within the endometrial cavity. Normal appearing left ovary. Right ovary is enlarged and measures 103 mm x 79 mm x 34 mm. 1. Size 31 mm x 29 mm x 28 mm. Hemorrhagic cyst with reticular pattern/clot 2. Size 82 mm x 70 mm x 52 mm. Unilocular simple cyst No adnexal masses were observed. There is free fluid visualized in the peritoneal cavity. Comparison to ultrasound on 05/29/2023: Right Ovary: 83 x 44 x 89 mm with a simple cyst of 84 mm Left ovary 40 x 21 x 24 mm with a simple cyst 24 mm. ASSESSMENT AND PLAN: Assessment AND Plan Ovarian cyst, complex Pelvic pain in female Referral to Dr. Galindo to discuss laparoscopic right oophorectomy if possible ftft >30 m Ciara Nugent MD Allergies As of Date: 12/14/2024 (No Known Allergies) Date Reviewed: 12/14/2024 Reviewed by: Nuria Zarco LPN - Fully Assessed Reason for Visit: Follow Up [171] Primary Visit Diagnosis:Ovarian cyst, complex [N83.299] Other Visit Diagnosis:Pelvic pain in female [R10.2] Prescriptions as of 12/14/2024 - phentermine-topirama te ER (QSYMIA) 15-92 mg 24 Hr Capsule Take 1 capsule by mouth once daily. - Phentermine HCl 30 mg capsule Take 30 mg by mouth daily before breakfast. - venlafaxine ER (EFFEXOR XR) 150 mg 24 hr capsule Take 1 capsule by mouth every afternoon. - tiZANidine (ZANAFLEX) 4 mg tablet Take 1 tablet by mouth every 12 (twelve) hours. - naproxen (NAPROSYN) 500 mg tablet Take 500 mg by mouth twice daily as needed. - levonorgestrel (LILETTA) 20.4 mcg/24 hrs (8 yrs) 52 mg IUD 1 each by INTRAUTERINE route one time only. Placed 03/29/2023 Problem List As Of Date: (more content not included)... Normal [facility] 12-07-2024 Indication pelvic pain,ovarian cyst Impression Normal appearing anteverted, axial, retroverted, mobile and tilted uterus that measures 83 mm x 47 mm x 70 mm. Endometrium measures 13.7 mm. 3D rendering of the uterus confirms the proper location of the IUD within the endometrial cavity. Normal appearing left ovary. Right ovary is enlarged and measures 103 mm x 79 mm x 34 mm. 1. Size 31 mm x 29 mm x 28 mm. Hemorrhagic cyst with reticular pattern/clot 2. Size 82 mm x 70 mm x 52 mm. Unilocular simple cyst No adnexal masses were observed. There is free fluid visualized in the peritoneal cavity. Comparison to ultrasound on 05/29/2023: Right Ovary: 83 x 44 x 89 mm with a simple cyst of 84 mm Left ovary 40 x 21 x 24 mm with a simple cyst 24 mm. Recommendations O-RADS 2 right ovarian non-simple cyst > 3 cm, almost certainly benign. Follow up ultrasound is recommended in 6 months. O-RADS 2 stable large right ovarian simple cyst, almost certainly benign. Consider surgical evaluation as clinically indicated. Menstrual History Contraception: tubal sterilization, Intrauterine contraceptive device Method Transabdominal, transvaginal, 3D ultrasound examination, Color Doppler examination. View: Suboptimal view: due to axial uterine orientation Uterus Uterus: Visualized Uterus position: anteverted, axial, retroverted, mobile and tilted Description of uterine malformations: none Myometrium: heterogeneous Endometrium: normal Cervix details: cystic lesions identified suggesting superficial Nabothian cysts Uterus length 83 mm Uterus width 70 mm Uterus height 47 mm Uterus Vol 142.2 cm Endometrial thickness, total 13.7 mm Fibroids: No fibroids identified Polyps: No polyps identified IUCD Position control IUCD type: Liletta. Location: positioned correctly at the fundus of the uterus Right Ovary Rt ovary: Visualized Rt ovary D1 103 mm Rt ovary D2 79 mm Rt ovary D3 34 mm Rt ovary Vol 144.1 cm Rt ovarian cyst(s): Cysts identified Rt ovarian cyst D1 31 mm Rt ovarian cyst D2 29 mm Rt ovarian cyst D3 28 mm Rt ovarian cyst mean 29.3 mm Rt ovarian cyst vol 13.180 cm Rt ovarian cyst findings: Hemorrhagic cyst with reticular pattern/clot Rt ovarian cyst D1 82 mm Rt ovarian cyst D2 70 mm Rt ovarian cyst D3 52 mm Rt ovarian cyst mean 68.0 mm Rt ovarian cyst vol 156.284 cm Rt ovarian cyst findings: Unilocular simple cyst Left Ovary Lt ovary: Visualized Lt ovary D1 39 mm Lt ovary D2 23 mm Lt ovary D3 21 mm Lt ovary Vol 9.7 cm Lt ovarian corpus luteum: hemorrhagic Lt ovarian corpus luteum D1 21.4 mm Lt ovarian corpus luteum D2 16.5 mm Lt ovarian corpus luteum D3 19.2 mm Cul de Sac Visualized. free fluid visualized: trace Procedure To characterize the IUD location, three dimensional imaging was created on a dedicated stand-alone 3D workstation with images created and archived, and supervised and reviewed by the interpreting physician utilizing images from an ultrasound scan performed today. Performed By: Breanne Medina RDMS Read By: Ewelina Aguilar M.D. MATERNAL MEDICINE [facility] JUAN DANIEL SCREENING W TOMOon 12-04 JUAN DANIEL SCREENING W OLLIE * * *Final Report* * * DATE OF EXAM: Dec 04 2024 11:09AM [id number] - JUAN DANIEL SCREENING W OLLIE / PROCEDURE REASON: multiple diagnoses * * * * Physician Interpretation * * * * RESULT: [place] [address] #[id number] - JUAN DANIEL SCREENING W OLLIE HISTORY: 44 year-old patient seen for screening. Patient is asymptomatic in both breasts. Patient states no personal history of breast cancer. COMPARISON STUDIES: The present examination has been compared to prior imaging studies dated 11/07/2021 (mammogram) and 11/30/2022 (mammogram). MAMMOGRAM TECHNIQUE: The study was acquired using full field digital technology and interpreted from soft copy. Digital Breast Tomosynthesis (DBT) images were obtained and used to assist in the interpretation of this examination. MAMMOGRAM FINDINGS: There are scattered areas of fibroglandular density. No suspicious masses, calcifications or other abnormalities are seen in either breast. There are no significant interval changes. IMPRESSION: There is no mammographic evidence of malignancy in either breast. Routine screening mammogram is recommended. Annual mammogram will be due in 1 year. BI-RADS Category 1: Negative RISK: Based on the Tyrer-Cuzick (TC) risk assessment model, this patient has a 5.0% lifetime risk of developing breast cancer, meaning they are at average risk for developing breast cancer. However, this is only an estimate based on available history provided on the patient's questionnaire. We encourage all patients to talk with their providers about these results, further recommendations for managing breast health, and appropriate supplemental screening options if the patient has dense breast tissue. Interpreting Radiologist: Aria Tello M.D. Electronically signed on: 12/09/2024 Equipment Technician: SAMUEL Transcribe Date/Time: Dec 04 2024 10:59A Dictated by: ARIA TELLO MD This examination was interpreted and the report reviewed and electronically signed by: ARIA TELLO MD on Dec 09 2024 12:40PM EST [id number] CN Normal [facility] 12-04-2024 Radiology Study observation (narrative) [facility] CNOVon 11-30-2024 CNOV Office Visit (OBGYWM) BRENDA ROSS ([id number]) 1980 F Date Time Provider Department 11/30/24 9:10 AM CIARA NUGENT OBSARAIWEhsan During your visit today, we recorded the following information about you: Blood pressure Weight Height 124/70 80.8 kg 1.676 m Ciara Nugent MD 11/30/2024 9:53 AM Signed Glass Technician/Installer provided by nurse. Brenda is a 44 year old who presents for an annual gynecologic exam with complaints, pelvic pain. Still get period: No LMP: no menses with IUD Lyletta placed 03/29/2023 Pt reported, Tubal ligation Menopause symptoms: Vaginal dryness Time with current partner: 17 years Number of lifetime partners: 30 control frequency: Always HPV vaccine: No; HPV:negative Last pap smear: Pt reported 07/12/2021 Pt reported as negative History of abnormal pap: Yes, history of abnormal PAP smears Bothersome pelvic pain: Yes Last mammogram: [facility] 2021 Pt reported normal. 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 PAST MEDICAL HISTORY Diagnosis Date Anxiety state Pty reported depression Bilateral ovarian cysts Pt reported PAST SURGICAL HISTORY Procedure Laterality Date ECTOPIC - TREATMENT LIGATE FALLOPIAN TUBE Bilateral TONSILLECTOMY AND ADENOIDECTOMY VAGINOSCOPY 02/10/2004 FAMILY HISTORY Problem Relation Age of Onset Cervical Cancer Mother Diabetes Father Hypertension Father Hypertension Maternal Grandmother Hypertension Maternal Grandfather SOCIAL HISTORY Social History Tobacco Use Smoking status: Former Types: Cigarettes Smokeless tobacco: Never Vaping Use Vaping status: Never Used Substance Use Topics Alcohol use: Yes Comment: occasional Drug use: Never REVIEW OF SYSTEMS Abdomen: No abdominal pain, nausea, vomiting, diarrhea, or constipation. No bloating, early satiety, indigestion, or increased flatulence. Bladder: No dysuria, gross hematuria, urinary frequency, urinary urgency, or incontinence. Breast: No breast lumps, nipple d/c, overlying skin changes, redness or skin retraction. Allergies and current medication updated:Yes SENSITIVE EXAM: The sensitive examination was discussed with the Patient or Patient's Authorized Fibre Technologist. As applicable, any other physician, advance practice provider, medical student, or other health professional student that will be observing or involved in the sensitive examination for educational or training purposes was discussed with the Patient or Authorized Fibre Technologist. The Patient or Authorized Fibre Technologist has agreed to proceed with the sensitive examination. (Sensitive examination includes inspection and/or palpation of the breasts, pelvis, prostate and anorectal regions). EXAM: BP 124/70 Ht 5' 6 (1.68m) Wt 178 lb 3.2 oz (80.8kg) BMI 28.78 kg/(m2). GENERAL: pleasant, female in no apparent distress HEENT: Normocephalic, atraumatic, mucus membranes moist, and no lesions NECK: Supple, full range of motion, no adenopathy, and thyroid normal DERMATOLOGY: Normal, without lesions, non-icteric, and non-hirsute BREAST: soft, non-tender, symmetric, no dominant mass, normal nipple-areolar complex, no lymphadenopathy, and no nipple discharge CHEST: Normal inspiratory effort ABDOMEN: soft, non-tender, and no masses PELVIC: external genitalia normal, normal Bartholin's glands, urethra, Sumiton's glands, no vulvar lesions, no cervical lesions, good vaginal support, physiologic discharge present, normal appearing perineal body and perianal region BIMANUAL: uterus normal size, shape and consistency, retroverted, no adnexal masses, non-tender, and Mild tenderness getting worse after exam RECTOVAGINAL: rectovaginal exam negative for any masses or nodularity. NEURO: alert and oriented x3,exam grossly non-focal EXTREMITIES: normal ASSESSMENT/PLAN: 1) Health maintenance: Pap done with reflex HPV. Mammogram ordered. 2) Contraception: IUD. Contraceptive options reviewed and information provided. 3) STD screening: Declined STD check. 4) Follow up one year or sooner as needed 5) Pelvic ultrassound Ciara Nugent MD Allergies As of Date: 11/30/2024 (No Known Allergies) Date Reviewed: 11/30/2024 Reviewed by: Cora Barcenas LPN - Fully Assessed Reason for Visit: Well Woman [1463] Primary Visit Diagnosis:Encounter for gynecological examination (general) (routine) without abnormal findings [Z01.419] Other Visit Diagnoses:Screening for cervical cancer [Z12.4] Encounter for screening for human papillomavirus (HPV) [Z11.51] Encounter for screening mammogram for breast cancer [Z12.31] Pelvic pain in female [R10.2] Order(s) (more content not included)... Normal [facility] HIGH RISK HUMAN PAPILLOMA BRENDEN (HPV), PCR FOR DETECTION AND GENOTYPINGon 11-30-2024 HPV 16 Ag Ql (Unsp spec) Not detected Normal Not detec [facility] Comment on above: Order Comment: Speci men Type: FLUID SPECIMEN Ordering Facility: [facility] Address: [address] [place] [address] Performed By: #### H PVHRT #### [facility] CLIA [id number] [address] [place] [address] [place] HPV 18 Ag Ql (Unsp spec) Not detected Normal Not detec ambrosio [facility] Comment on above: Order Comment: Speci men Type: FLUID SPECIMEN Ordering Facility: [facility] Address: [address] [place] [address] Performed By: #### H PVHRT #### [facility] CLIA [id number] [address] [place] [address] [place] HPV 31+33+35+39+45+51+52+56+ 58+59+66+68 DNA SUKHJINDER+probe Ql (Cvx) Not detected Normal Not detected [facility] Comment on above: Order Comment: Speci men Type: FLUID SPECIMEN Ordering Facility: [facility] Address: [address] [place] [address] Result Comment: High Risk HPV Other Type includes HPV types 31, 33, 35, 39, 45, 51, 52, 56, 58, 59, 66 and 68. Performed By: #### H PVHRT #### [facility] CLIA [id number] [address] [place] [address] [place] PAP TESTon 11-30-2024 ADEQUACY Normal [facility] Comment on above: Order Comment: Speci men Type: FLUID SPECIMEN Ordering Facility: [facility] Address: [address] [place] [address] Result Comment: Sati sfactory for interpretation. No endocervical component Performed By: #### L [id number] #### [facility] CLIA [id number] [address] [place] [address] [place] CASE REPORT [facility] Comment on above: Order Comment: Speci men Type: FLUID SPECIMEN Ordering Facility: [facility] Address: [address] [place] [address] Result Comment: Gyne cologic Cytology Report Case: [id number] Authorizing Provider: Ciara Nugent MD Collected: 11/30/2024 10:04 AM Ordering Location: OB/Gynecology Received: 11/30/2024 01:49 PM First Screen: Emma, Pari, CT, ASCP Specimen: Pap Test, ThinPrep, Cervix Performed By: #### L [id number] #### [facility] CLIA [id number] [address] [place] [address] [place] CLINICAL HISTORY, CYTOLOGY, WARD SERVICE SUPERVISOR Routine Exam [facility] Comment on above: Order Comment: Speci men Type: FLUID SPECIMEN Ordering Facility: [facility] Address: [address] [place] [address] Result Comment: Intr a Uterine Device, No Menses Performed By: #### L [id number] #### [facility] CLIA [id number] [address] [place] [address] [place] FINAL PERFORMING LAB Normal [facility] Comment on above: Order Comment: Speci men Type: FLUID SPECIMEN Ordering Facility: [facility] Address: [address] [place] [address] Result Comment: Tech nical component, pony worker screening performed at: [facility], [address] [place], [place] [id number] CLIA: [id number] Diagnostic interpretation performed at: [facility], [address] [place], [place] [address] CLIA# [id number] Life Skills Coach: Danilo Arreaga MD Performed By: #### L [id number] #### [facility] CLIA [id number] [address] [place] [address] [place] INTERPRETATION, CYTOLOGY, WARD SERVICE SUPERVISOR Normal [facility] Comment on above: Order Comment: Speci men Type: FLUID SPECIMEN Ordering Facility: [facility] Address: [address] [place] [address] Result Comment: Nega tive for intraepithelial lesion or malignancy. at 1118 EDT Performed By: #### L [id number] #### [facility] CLIA [id number] [address] [place] [address] [place] PAP DISCLAIMER COMMENT The Pap Smear is a screening test for cervical cancer. False negative results occur with all screening tests, emphasizing the need for rescreening at recommended intervals, and clinical correlation. [facility] Comment on above: Order Comment: Speci men Type: FLUID SPECIMEN Ordering Facility: [facility] Address: [address] [place] [address] Performed By: #### L [id number] #### [facility] CLIA [id number] [address] [place] [address] [place] PAP DISASSEMBLER PRODUCT COMMENT This specimen has been analyzed by the FDA-approved GroundCntrl System, which uses digital imaging and an enhanced artificial intelligence image analysis algorithm to identify lyons of interest on the microscopic slide, to assist the toggle press operator and pathologist in evaluating cells on ThinPrep Pap tests. Following analysis, lyons of interest on the microscopic slide selected by the algorithm are reviewed by a toggle press operator. If a sample requires hierarchical review, the pathologist will review the same lyons of interest selected by the algorithm prior to final interpretation. [facility] Comment on above: Order Comment: Speci men Type: FLUID SPECIMEN Ordering Facility: [facility] Address: [address] [place] [address] Performed By: #### L [id number] #### [facility] CLIA [id number] [address] [place] [address] [place] US FEMALE PELVIS TRANSVAGon 05-29-2023 [facility] Absolute lymphocyte countOrd ered By: ED PROVIDER on 03-29-2023 Lymphocytes Auto (Unsp spec) [#/Vol] 2.52 10*3/uL 0.83-4.51 [facility] Amorphous sediment detection in urine sediment by light microscopyOrdered By: Frankie Arthur on 03-29-2023 Amorphous sediment LM Ql (Urine sed) 1+ [facility] Basophil percentageOrdered B y: Frankie Arthur on 03-29-2023 Basophil percentage 0 SEEN /hpf 0-5 [facility] Bilirubin [Mass/Vol] 0.20 mg/dL 0.20-1.00 [facility] Comment on above: For patients on eltr ombopag therapy, use of Dimension [place] TBIL is not recommended. Chloride [Moles/Vol] 107 mmol/L 98-107 [facility] Glucose [Mass/Vol] 100 mg/dL 74-106 [facility] Comment on above: Fasting Glucose resu lt from 100 to 125 mg/dL suggests IMPAIRED HOMEOSTASIS per A.D.A. criteria. Potassium [Moles/Vol] 3.9 mmol/L 3.5-5.1 [facility] Protein [Mass/Vol] 7.2 g/dL 6.4-8.2 [facility] Sodium [Moles/Vol] 140 mmol/L 136-145 [facility] Basophil percentageOrdered B y: ED PROVIDER on 03-29-2023 Basophils/100 WBC (Bld) 0.8 % 0-1 [facility] Eosinophils/100 WBC (Bld) 1.7 % 0-5 [facility] Neutrophils (Bld) [#/Vol] 5.5 10*3/uL 2.0-7.7 [facility] Neutrophils/100 WBC (Bld) 61.7 % 47-70 [facility] WBC (Bld) [#/Vol] 8.9 10*3/uL 4.4-11.0 [facility] Beta hCG serum qualOrdered B y: Frankie Arthur on 03-29-2023 Beta HCG ( test) Ql Negative [facility] Bilirubin Test strip Ql (U)O rdered By: Frankie Arthur on 03-29-2023 Bilirubin Ql (U) Negative Negative [facility] Blood erythrocytes count (nu mber/volume)Ordered By: ED PROVIDER on 03-29-2023 RBC (Bld) [#/Vol] 4.50 10*6/uL 4.2-5.4 [facility] Blood hemoglobin measurement (mass/volume)Ordered By: ED PROVIDER on 03-29-2023 Hemoglobin (Bld) [Mass/Vol] 13.8 g/dL 12.0-15.0 [facility] Blood lymphocytes/100 leukoc ytesOrdered By: ED PROVIDER on 03-29-2023 Lymphocytes/100 WBC (Bld) 28.3 % 19-41 [facility] Blood monocytes/100 leukocyt esOrdered By: ED PROVIDER on 03-29-2023 Monocytes/100 WBC (Bld) 7.3 % 0-10 [facility] Blood platelet mean volumeOr dered By: ED PROVIDER on 03-29-2023 Platelet mean volume (Bld) [Entitic vol] 9.7 fL 6.2-12.0 [facility] Determination of erythrocyte mean corpuscular volume (MCV)Ordered By: ED PROVIDER on 09-15-2023 MCV (RBC) [Entitic vol] 88.7 fL 81-99 [facility] Hematocrit Auto (Bld) [Volum e fraction]Ordered By: ED PROVIDER on 03-29-2023 Hematocrit (Bld) [Volume fraction] 39.9 % 37-47 [facility] Ketones Test strip Ql (U)Ord ered By: Frankie Arthur on 03-29-2023 Ketones Ql (U) Negative Negative [facility] Laboratory - Chemistry and C hemistry - challengeOrdered By: Frankie Arthur on 03-29-2023 ALP [Catalytic activity/Vol] 58 U/L 45-117 [facility] ALT [Catalytic activity/Vol] 22 U/L 13-56 [facility] CO2 [Moles/Vol] 28.0 mmol/L 21.0-32.0 [facility] Globulin (S) [Mass/Vol] 3.2 g/dL 2.2-4.2 [facility] Lipase [Catalytic activity/Vol] 40 U/L 13-75 [facility] Comment on above: Please note:LIPASE r evised reference range effective 22. New Lipase methodology. Expected to produce lower values than the previous assay method. NEW Reference Range: 13 - 75 U/L Urea nitrogen/Creatinine [Mass ratio] 14.1 mg/mg 10-20 [facility] Laboratory - Hematology and Cell countsOrdered By: ED PROVIDER on 03-29-2023 Erythrocyte distribution width (RBC) [Entitic vol] 41.5 fL 35.1-43.9 [facility] Erythrocyte distribution width (RBC) [Ratio] 12.6 % 11.6-14.6 [facility] Immature granulocytes/100 WBC (Bld) 0.200 % 0.0-0.9 [facility] Comment on above: IG% - Immature Granu locytes (promyelocytes, myelocytes and metamyelocytes) > 1% indicates that a LEFT SHIFT is Present. MCH (RBC) [Entitic mass] 30.7 pg 27.0-32.0 [facility] Nucleated RBC/100 WBC (Bld) [Ratio] 0 % 0-5 [facility] MCHC Auto (RBC) [Mass/Vol]Or dered By: ED PROVIDER on 03-29-2023 MCHC (RBC) [Mass/Vol] 34.6 g/dL 32-36 [facility] Mucus LM Ql (Urine sed)Order ed By: Frankie Arthur on 03-29-2023 Mucus Ql (Urine sed) 0 SEEN /hpf [facility] Nitrite Test strip Ql (U)Ord ered By: Frankie Arthur on 03-29-2023 Nitrite Ql (U) Negative Negative [facility] No Panel InformationOrdered By: Frankie Arthur on 03-29-2023 Estimated Creatinine Clearance Calc 94.66 ml/min [facility] Estimated GFR (MDRD) Amer 115 mL/min >60 [facility] Comment on above: GFR Calc Estimated GFR (MDRD) Non-Af Amer 95 mL/min >60 [facility] Comment on above: Non- GFR Calc Platelets bldOrdered By: ED PROVIDER on 03-29-2023 Platelets (Bld) [#/Vol] 274 10*3/uL 150-450 [facility] Protein Test strip Ql (U)Ord ered By: Frankie Arthur on 03-29-2023 Protein Ql (U) 15 mg/dl Negative [facility] Serum or plasma albumin dora urement (mass/volume)Ordered By: Frankie Arthur on 03-29-2023 Albumin [Mass/Vol] 4.0 g/dL 3.2-5.0 [facility] Serum or plasma albumin/glob ulin mass ratioOrdered By: Frankie Arthur on 03-29-2023 Albumin/Globulin [Mass ratio] 1.2 {ratio} 0.9-2.4 [facility] Serum or plasma calcium dora urement (mass/volume)Ordered By: Frankie Arthur on 03-29-2023 Calcium [Mass/Vol] 9.3 mg/dL 8.5-10.1 [facility] Serum or plasma creatinine m easurement (mass/volume)Ordered By: Frankie Arthur on 03-29-2023 Creatinine [Mass/Vol] 0.71 mg/dL 0.55-1.02 [facility] Comment on above: The validity of the calculated GFR & GFRAA in patients over 70 years has not been determined. Clinical correlation is essential. Serum or plasma urea nitroge n measurement (mass/volume)Ordered By: Frankie Arthur on 03-29-2023 Urea nitrogen [Mass/Vol] 10 mg/dL 7-18 [facility] Squamous epithelial cells de tection in urine sediment by light microscopyOrdered By: Frankie Arthur on 03-29-2023 Epithelial cells.squamous LM Ql (Urine sed) 0-5 SEEN /hpf 5-10 [facility] Thin prep Papanicolaou smear with manual screeningOrdered By: Frankie Arthur on 03-29-2023 Thin prep Papanicolaou smear with manual screening 11 U/L 15-37 [facility] Thin prep Papanicolaou smear with manual screening 5 5-15 [facility] Urine blood detectionOrdered By: Frankie Arthur on 03-29-2023 RBC Ql (U) 10 /ul Negative [facility] RBC Ql (U) 0 SEEN /hpf 0-5 [facility] Urine clarityOrdered By: Esteban Arthur on 03-29-2023 Clarity (U) Sl. Cloudy Clear [facility] Urine color determinationOrd ered By: Frankie Arthur on 03-29-2023 Color (U) Yellow Yellow [facility] Urine glucose detectionOrder ed By: Frankie Arthur on 03-29-2023 Glucose Ql (U) Normal mg/dl Normal [facility] Urine leukocyte esterase det ection by dipstickOrdered By: Frankie Arthur on 03-29-2023 Leukocyte esterase Test strip Ql (U) 25 /ul Negative [facility] Urine pHOrdered By: Frankie layne on 03-29-2023 pH (U) 7.0 [pH] 5.0 - 8.0 [facility] Urine sediment bacteria coun t by microscopy (number/high power field)Ordered By: Frankie Arthur on 03-29-2023 Bacteria LM.HPF (Urine sed) [#/Area] RARE /hpf None Seen [facility] Urine specific gravity measu rementOrdered By: Frankie Arthur on 03-29-2023 Specific gravity (U) [Rel density] 1.015 1.002-1.030 [facility] Urobilinogen Auto test strip Ql (U)Ordered By: Frankie Arthur on 03-29-2023 Urobilinogen Ql (U) Normal mg/dl Normal [facility] Vital Signs Date Time Vital Sign Value Performing Clinician Faci lity 02-09-2025 14:03-0400 Body height 168.3 cm Brian Mehrdad MD Work Phone: [facility] 02-09-2025 14:03-0400 Body mass index (BMI) [Ratio] 29.47 kg/m2 Brian Galindo MD Work Phone: [facility] 02-09-2025 14:03-0400 Body weight 83.46 kg Brian Galindo MD Work Phone: [facility] 02-09-2025 14:03-0400 Diastolic blood pressure 72 mm[Hg] Brian Galindo MD Work Phone: [facility] 02-09-2025 14:03-0400 Heart rate 75 /min Brian Galindo MD Work Phone: [facility] 02-09-2025 14:03-0400 SaO2% (BldA) [Mass fraction] 97 % Brian Galindo MD Work Phone: [facility] 02-09-2025 14:03-0400 Systolic blood pressure 106 mm[Hg] Brian Galindo MD Work Phone: [facility] 11-30-2024 09:12-0400 Body height 167.6 cm Ciara Nugent MD Work Phone: [facility] 11-30-2024 09:12-0400 Body mass index (BMI) [Ratio] 28.76 kg/m2 Ciara Nugent MD Work Phone: [facility] 11-30-2024 09:12-0400 Body weight 80.83 kg Ciara Nugent MD Work Phone: [facility] 11-30-2024 09:12-0400 Diastolic blood pressure 70 mm[Hg] Ciara Nugent MD Work Phone: [facility] 11-30-2024 09:12-0400 Systolic blood pressure 124 mm[Hg] Ciara Nugent MD Work Phone: [facility] 04-02-2023 11:29-0400 Body weight 81.65 kg Gayatri Lenz APRN.CNP Work Phone: [facility] 04-02-2023 11:29-0400 Diastolic blood pressure 66 mm[Hg] Gayatri Yoanna EXCEPTIONAL CHILDREN TEACHER.PAD MACHINE FEEDER Work Phone: [facility] 04-02-2023 11:29-0400 Systolic blood pressure 118 mm[Hg] Gayatri Yoanna EXCEPTIONAL CHILDREN TEACHER.PAD MACHINE FEEDER Work Phone: [facility] 03-29-2023 21:09-0400 Diastolic blood pressure 77 mm[Hg] [facility] 03-29-2023 21:09-0400 Heart rate 78 /min [facility] 03-29-2023 21:09-0400 Respiratory rate 14 /min [facility] 03-29-2023 21:09-0400 SaO2% (BldA) [Mass fraction] 98 % [facility] 03-29-2023 21:09-0400 Systolic blood pressure 124 mm[Hg] [facility] 03-29-2023 16:04-0400 Body height 167.64 cm [facility] 03-29-2023 16:04-0400 Body mass index (BMI) [Ratio] 27.6 kg/m2 [facility] 03-29-2023 16:04-0400 Body temperature 96.9 [degF] [facility] 03-29-2023 16:04-0400 Body weight 77.56 kg [facility] Encounters Encounter Date Encounter Type Care Provider Facility Start: 02-25-2025 ambulatory Brian Galindo Facilit y:[facility] Start: 02-18-2025 Encounter for other preprocedural examination Brian Galindo [facility] Start: 02-09-2025 End: 02-09-2025 Patient encounter procedure Brian Galindo MD Work Phone: OB/Gynecology Comment on above: Ovarian cyst, comple x (Primary Dx); Pelvic pain in female; Sterilization Start: 02-09-2025 End: 02-09-2025 ambulatory BRIAN GALINDO Facility:[facility] Start: 02-09-2025 Encounter for other preprocedural examination BRIAN GALINDO [facility] Start: 12-22-2024 End: 01-13-2025 Telephone encounter Brian Galindo MD Work Phone: OB/Gynecology Comment on above: Schedule Surgery Start: 12-14-2024 End: 12-14-2024 Patient encounter procedure Ciara Nugent MD Work Phone: OB/Gynecology Comment on above: Ovarian cyst, comple x (Primary Dx); Pelvic pain in female Start: 12-14-2024 End: 12-14-2024 ambulatory CIARA NUGENT Facility:[facility] Start: 12-09-2024 End: 02-08-2025 Follow-up encounter Brian Galindo MD Work Phone: OB/Gynecology Start: 12-04-2024 End: 12-04-2024 Patient encounter procedure [place] [id number] [address] [facility]ne[facility] Start: 12-04-2024 End: 12-04-2024 ambulatory Manager Process [facility] Work Phone: OB/Gynecology Start: 11-30-2024 End: 11-30-2024 Patient encounter procedure Ciara Nugent MD Work Phone: OB/Gynecology Comment on above: Encounter for gyneco logical examination (general) (routine) without abnormal findings (Primary Dx); Screening for cervical cancer; Encounter for screening for human papillomavirus (HPV); Encounter for screening mammogram for breast cancer; Pelvic pain in female Start: 11-30-2024 End: 11-30-2024 Patient encounter status Ciara Nugent MD Work Phone: [facility] Start: 11-30-2024 End: 11-30-2024 ambulatory CIARA NUGENT Facility:[facility] Start: 11-30-2024 Encounter for gynecological examination (general) (routine) without abnormal findings CIARA NUGENT [facility] Start: 05-30-2023 Telephone encounter Gayatri reynolds APRN.PAD MACHINE FEEDER Work Phone: OB/Gynecology Comment on above: Results Start: 05-29-2023 End: 05-29-2023 Subsequent hospital visit by physician [facility] [address] Work Phone: Radiology Comment on above: Ovarian cyst, right [N83.201] Start: 04-02-2023 End: 04-02-2023 Patient encounter procedure Gayatri Lenz EXCEPTIONAL CHILDREN TEACHER.PAD MACHINE FEEDER Work Phone: OB/Gynecology Comment on above: Ovarian cyst, right (Primary Dx) Start: 03-29-2023 End: 03-29-2023 Emergency department patient visit [facility] Work Phone: Start: 11-30-2022 End: 11-30-2022 ambulatory [facility] Work Phone: Start: 11-30-2022 End: 11-30-2022 Patient encounter procedure [facility]-Outpatient Breast Imaging Start: 11-07-2021 End: 11-07-2021 Patient encounter procedure [facility]-Outpatient Breast Imaging Procedures Date Procedure Procedure Detail Performing Clinician Start: 12-04-2024 Us pelvic nonobstetr ic real-time image complete Ciara Nugent MD Work Phone: Start: 05-29-2023 Us transvaginal Gayatri emanuel APRN.PAD MACHINE FEEDER Work Phone: Start: 03-29-2023 Transvaginal echography Start: 03-29-2023 Computed tomography of abdomen and pelvis with intravenous contrast Start: 11-30-2022 Screening mammography Start: 11-07-2021 Screening mammography Plan of Treatment Date Care Activity Detail Author Start: 02-08-2031 Urine microalbumin profile DTaP,Tdap,Td Vaccine (2 - Td or Tdap) [facility] Start: 11-30-2029 Screening for malign ant neoplasm of cervix Cervical Cancer Screening [facility] Start: 12-13-2025 End: 12-13-2025 Patient encounter procedure 12/13/2025 8:50 AM EDT Office Visit OB/Gynecology [address] [place], [place] [id number] Ciara Nugent MD [address] [place] [address] annual OB/Gynecology Comment on above: annual Start: 12-04-2025 Screening for malign ant neoplasm of breast Mammogram Screening [facility] Start: 03-15-2025 Influenza vaccination Influenza Vacc ine (#1) [facility] Start: 02-15-2025 End: 02-15-2025 Patient encounter procedure 02/15/2025 5:00 PM EDT Office Visit Family [facility] [address] [place] [address] Carmella Sandhu MD [facility] [place] [address] Change r providers- wellness visit [facility] Comment on above: Change r providers- wellness visit Start: 02-09-2025 End: 02-09-2025 Patient encounter procedure 02/09/2025 2:00 PM EDT Office Visit OB/Gynecology [address] [place] [address] Brian Galindo MD [address] [place] [id number] surgery 02/25 OB/Gynecology Comment on above: surgery 02/25 Start: 12-04-2024 End: 12-04-2024 Patient encounter procedure 12/04/2024 11:30 AM EDT Appointment Mammogram [address] [place] [address] [facility] Mammogram Comment on above: [facility] Start: 12-04-2024 End: 12-04-2024 Manual pelvic examination 12/04/2024 10:00 AM EDT Procedure OB/Gynecology [address] [place] [address] Remote, Manager Process Wstr [employer] Us [address] [place] [address] [facility] OB/Gynecology Comment on above: [facility] Start: 11-30-2024 End: 11-30-2025 US Pelvis [facility] Anc Imaging Routine Pelvic pain in female Expected: 11/30/2024, Expires: 11/30/2025 [facility] Comment on above: Expected: 11/30/2024 , Expires: 11/30/2025 Start: 03-15-2024 Covid-19 Vaccine ( season) Covid-19 Vaccine () [facility] Start: 11-06-2023 Diabetes Screening Diabetes Screenin g [facility] Start: 11-06-2023 Lipid panel Lipid Screening [facility] Start: 11-06-2023 Screening for malign ant neoplasm of colon [facility] Start: 03-15-2023 Covid-19 Vaccine () Covid-19 Vaccine () [facility] Start: 03-15-2023 Influenza vaccination Influenza Vacc ine (#1) [facility] Start: 07-15-2022 Depression Assessment Depression Ass essment [facility] Start: 10-12-2020 Covid-19 Vaccine (3 - Moderna series) Covid-19 Vaccine (3 - Moderna series) [facility] Start: 2018 Mammography Mammogram Screening [facility] Start: 2018 Screening for malign ant neoplasm of breast Mammogram Screening [facility] Start: 2008 HPV Testing HPV Testing [facility] Start: 11-06-1999 Pap Testing Pap Testing [facility] Start: 11-06-1999 Screening for malign ant neoplasm of cervix Cervical Cancer Screening [facility] Start: 1997 Hepatitis B Vaccine (1 of 3 - 19+ 3-dose series) Hepatitis B Vaccine (1 of 3 - 19+ 3-dose series) [facility] Start: 1997 Urine microalbumin profile DTaP,Tdap,Td Vaccine (1 - Tdap) [facility] Start: 1996 Anxiety Screening Anxiety Screening [facility] Start: 1996 Depression Screening Depression Scre ening [facility] Start: 1996 Hepatitis C Screening Hepatitis C [facility] Start: 1996 Hepatitis C screening Hepatitis C [facility] Start: 1996 HIV Screening HIV Screening [facility] Start: 1996 HIV screening HIV Screening [facility] Start: 1978 Hepatitis B Vaccine (1 of 3 - 3-dose series) Hepatitis B Vaccine (1 of 3 - 3-dose series) [facility] End: 12-30-2025 DBT Breast - bilateral screening [facility] Radiology Routine Encounter for gynecological examination (general) (routine) without abnormal findings Encounter for screening mammogram for breast cancer 1 Occurrences starting 11/30/2024 until 12/30/2025 [facility] Work Phone: Comment on above: 1 Occurrences starti ng 11/30/2024 until 12/30/2025 PAP TEST PAP TEST Lab [facility]a Encounter for gynecological examination (general) (routine) without abnormal findings Screening for cervical cancer Encounter for screening for human papillomavirus (HPV) 11/30/2024 10:04 AM EDT [facility] Patient Education ED Abdominal P ain Unkn Cause Fem ED Ovarian Cyst [facility] Work Phone: Patient referral [facility] Work Phone: End: 05-01-2024 Us transvaginal US FEMALE PELVIS TRANSVAG Radiology Routine Ovarian cyst, right 1 Occurrences starting 04/02/2023 until 05/01/2024 [facility] Work Phone: Comment on above: 1 Occurrences starti ng 04/02/2023 until 05/01/2024 End: 06-28-2024 Us transvaginal US FEMALE PELVIS TRANSVAG Radiology Routine Cysts of both ovaries 1 Occurrences starting 05/30/2023 until 06/28/2024 [facility] Work Phone: Comment on above: 1 Occurrences starti ng 05/30/2023 until 06/28/2024 [place] [facility] Immun[facility] Immunization Date Immunization Notes Care Provider [facility] 05-19-2024 influenza, seasonal, injectable, preservative free Brian Galindo MD Work Phone: [facility] 05-19-2024 influenza virus vacc ine, unspecified formulation Brian Galindo MD Work Phone: [facility] 05-09-2023 influenza, injectabl e, quadrivalent, preservative free Brian Galindo MD Work Phone: [facility] 05-24-2022 influenza, injectabl e, quadrivalent, preservative free Brian Galindo MD Work Phone: [facility] 05-24-2022 influenza virus vacc ine, unspecified formulation Gayatri Delgadorolando 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 Work Phone: [facility] 02-08-2021 tetanus toxoid, redu ankita diphtheria toxoid, and acellular pertussis vaccine, adsorbed Brian Galindo MD Work Phone: [facility] 04-01-2020 influenza, injectabl e, quadrivalent, contains preservative Brian Galindo MD Work Phone: [facility] 04-28-2019 influenza, seasonal, injectable Brian Galindo MD Work Phone: [facility] Payers Date Payer Category Payer Self-pay [id number] 2022 Private Health Insurance [id number] 2022 Private Health Insurance [id number] 2013 Unknown [id number] Unknown [id number] Unknown [id number] Social History Date Type Detail Facility Start: 07-04-2015 End: 03-29-2023 Tobacco smoking status HIIS Unknown if ever smoked [facility] Start: 1980 Sex Assigned At Female [facility] Start: 04-02-2023 Tobacco smoking stat us HIIS Ex-smoker [facility] History of tobacco use Current smoker [facility] History of tobacco use Cigarette Smoker [facility] Start: 04-02-2023 Tobacco use and exposure Smokeless tobacco non-user [facility] Start: 04-02-2023 End: 02-10-2025 Alcohol intake Current drinker of alcohol (finding) [facility] Start: 04-02-2023 End: 02-10-2025 History of Social function [facility] Start: 04-02-2023 End: 02-10-2025 Tobacco use panel [facility] National Score (1-10 0), lower number is lower risk 70 [facility] Start: 04-02-2023 Alcohol Comment [facility] Start: 1980 Sex Assigned At Not on file [facility] Start: 11-23-2024 Gender identity Identifies as female gender (finding) [facility] Start: 11-23-2024 Sexual orientation Heterosexual (fin ding) [facility] Clinical Notes 03-29-2023 to 02-10-2025 Brian Galindo MD - 02/09/2025 2:20 PM Brian Roblero MD - 02/09/2025 2:04 PM Brian Roblero MD - 02/09/2025 2:04 PM Ciara Barragan MD - 12/14/2024 8:50 AM EDT Note Date & Type Note Facility 02-10-2025 Note [facility] Medical Records Department [address] [place] [address] History Physical Exam 02/10/25 0843 MR#: [id number] Acct: [id number] Name: BRENDA ROSS Rep #: [id number] : 1980 44 From: Brian Galindo MD PCP: Dr. Delvin Garcia MD Status:PRE [facility] Location: [facility] History and Physical Date of Admission: 02/25/25 HPI: The patient is a 44 year old female presenting for pre-operative visit. She is scheduled for laparoscopic RSO and left salpingectomy, for sterilization request and right ovarian cyst and pelvic pain on 02/25/25. Procedure discussed along with risks, benefits and complications. Other alternatives discussed for management. Consent form signed? Yes. ? PAST MEDICAL HISTORY PAST MEDICAL HISTORYDiagnosisDate???Anxiety state?Pty reported depression???Bilateral ovarian cysts?Pt reported ? PAST SURGICAL HISTORY PAST SURGICAL HISTORYProcedureLateralityDate??? ECTOPIC - TREATMENT?LIGATE FALLOPIAN TUBEBilateral?TONSILLECTOMY ADENOIDECTOMY ? CURRENT MEDICATIONS Current Outpatient MedicationsMedicationSigDispenseR efill???tiZANidine (ZANAFLEX) 4 mg tabletTake 1 tablet by mouth every 12 (twelve) hours.?levonorgestrel (LILETTA) 20.4 mcg/24 hrs (8 yrs) 52 mg IUD1 each by INTRAUTERINE route one time only. Placed 03/29/2023?phentermine-to piramate ER (QSYMIA) 15-92 mg 24 Hr CapsuleTake 1 capsule by mouth once daily. (Patient not taking: Reported on 02/09/2025)?Phentermine HCl 30 mg capsuleTake 30 mg by mouth daily before breakfast. (Patient not taking: Reported on 12/14/2024)?venlafaxine ER (EFFEXOR XR) 150 mg 24 hr capsuleTake 1 capsule by mouth every afternoon. (Patient not taking: Reported on 02/09/2025)?naproxen (NAPROSYN) 500 mg tabletTake 500 mg by mouth twice daily as needed. (Patient not taking: Reported on 02/09/2025)?No current facility-administered medications for this visit. ? ALLERGIES: Patient has no known allergies. ??? PERSONAL HISTORY: SOCIAL HISTORY Social History???Tobacco Use???Smoking status:Former?Types:Cigarett es???Smokeless tobacco:NeverVaping Use ???Vaping status:Never UsedSubstance Use Topics???Alcohol use:Yes?Comment: occasional???Drug use:Never ??? FAMILY HISTORY: FAMILY HISTORY FAMILY HISTORY ProblemRelationAge of Onset???Cervical CancerMother?DiabetesFather?HypertensionFather?Hear t diseaseFather? CAD???Crohn's DiseaseBrother?HypertensionM aternal Grandmother?HypertensionMate rnal Grandfather? REVIEW OF SYMPTOMS: GENERAL: denies fevers or chills ENDOCRINOLOGY: has not been on steroids Cardiology : denies palpitations or chest pain Respiratory: denies SOB or cough Hematology: denies history of prolonged bleeding or easy bruising or VTE Allergy: Denies history of personal or family history of allergy to anesthesia ??? PHYSICAL EXAMINATION: ??? VITALS: Blood pressure 106/72, pulse 75, height 168.3 cm (5' 6.25), weight 83.5 kg (184 lb), SpO2 97%. ??? GENERAL: The patient is well nourished, well hydrated in no acute distress. , The patient is oriented to time, place, and person. NECK: Supple. No lynphadenopathy, normal thyroid, no thyromegaly. LUNGS: Clear to auscultation bilaterally. no wheezes, rhonchi or rales HEART: Regular rate and rhythm, Normal heart sounds, and No murmurs or gallops ??? IMPRESSION:pelvic pain, right ovarian cyst, sterilzation request ??? PLAN: The risks/benefits/alternatives and personal involved for the planned laparoscopic RSO, left salpingectomy were reviewed with the patient. Her questions were answered to her satisfaction and she desires to proceed. Consent was signed. I reviewed with her postop instructions and expectations. ? I have reviewed and updated past medical and surgical history, medications and allergies Assessment Plan Assessment/Plan (1) Pelvic pain: (2) Sterilization: 02/10/25 0931 Cosigner Signature (if applicable): CC: Dr. Delvin Garcia MD; Dr. Brian Galindo MD Signed [facility] 02-09-2025 Note HNO ID: [id number] Author: BRIAN GALINDO MD Service: ? Author Type: Physician Type: Progress Notes Filed: 02/10/2025 08:41 Note Text: Brenda Ross is a 44 year old female who presents for problem visit for f/u ovarian cyst and pelvic pain. HPI: 44 YOF notes since last 9 years ago had cyst on ovary and she doesn't think it ever went away. Saw Dr. Kang in the past and has followed it but she feels when it enlarges or is inflamed, sometimes more painful than others. Sometimes sharp and severe, sometimes some low back pain that seems cyclical. Some pain w/ intercourse and exams. Has one fallopian tube removed, thinks it is the left, had tubal as well. Has Liletta IUD and no menses w/ that. Does well. Does not plan future pregnancies. Has had current Liletta about 2 years. 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 PAST MEDICAL HISTORY Diagnosis Date Anxiety state Pty reported depression Bilateral ovarian cysts Pt reported PAST SURGICAL HISTORY Procedure Laterality Date ECTOPIC - TREATMENT LIGATE FALLOPIAN TUBE Bilateral TONSILLECTOMY AND ADENOIDECTOMY VAGINOSCOPY 02/10/2004 FAMILY HISTORY Problem Relation Age of Onset Cervical Cancer Mother Diabetes Father Hypertension Father Heart disease Father CAD Crohn's Disease Brother Hypertension Maternal Grandmother Hypertension Maternal Grandfather Social History Tobacco Use Smoking status: Former Types: Cigarettes Smokeless tobacco: Never Vaping Use Vaping status: Never Used Substance Use Topics Alcohol use: Yes Comment: occasional Drug use: Never Current Outpatient Medications Medication Sig tiZANidine (ZANAFLEX) 4 mg tablet Take 1 tablet by mouth every 12 (twelve) hours. levonorgestrel (LILETTA) 20.4 mcg/24 hrs (8 yrs) 52 mg IUD 1 each by INTRAUTERINE route one time only. Placed 03/29/2023 phentermine-topiramate ER (QSYMIA) 15-92 mg 24 Hr Capsule Take 1 capsule by mouth once daily. (Patient not taking: Reported on 02/09/2025) Phentermine HCl 30 mg capsule Take 30 mg by mouth daily before breakfast. (Patient not taking: Reported on 12/14/2024) venlafaxine ER (EFFEXOR XR) 150 mg 24 hr capsule Take 1 capsule by mouth every afternoon. (Patient not taking: Reported on 02/09/2025) naproxen (NAPROSYN) 500 mg tablet Take 500 mg by mouth twice daily as needed. (Patient not taking: Reported on 02/09/2025) No current facility-administered medications for this visit. Allergies As of Date: 02/09/2025 (No Known Allergies) Fully Assessed 02/09/2025 REVIEW OF SYSTEMS Abdomen: No bloating, early satiety, indigestion, or increased flatulence. No abdominal pain, nausea, vomiting, diarrhea, or constipation. Bladder: No dysuria, gross hematuria, urinary frequency, urinary urgency, or incontinence. Allergies and current medication updated:Yes SENSITIVE EXAM: Sensitive exam not performed. EXAM: BP 106/72 Pulse 75 Ht 5' 6.25 (1.68m) Wt 184 lb (83.5kg) SpO2 97% BMI 29.47 kg/(m2). GENERAL: pleasant, female in no apparent distress ASSESSMENT AND PLAN: Assessment AND Plan Ovarian cyst, complex Pelvic pain in female Sterilization decision for surgery today. D/w her r/b/a to surgery. D/w her likely benign but will need to await final pathology for definitive diagnosis. D/w her she farooq be permanently unable to bear children. D/w her cannot guarantee resolution of pain as is likely multifactorial. Questions answered. She desires to proceed. Brian Galindo MD [facility] 02-09-2025 History of Present illness Narrative Brenda Ross is a 44 year old female who presents for problem visit for f/u ovarian cyst and pelvic pain. HPI: 44 YOF notes since last 9 years ago had cyst on ovary and she doesn't think it ever went away. Saw Dr. Kang in the past and has followed it but she feels when it enlarges or is inflamed, sometimes more painful than others. Sometimes sharp and severe, sometimes some low back pain that seems cyclical. Some pain w/ intercourse and exams. Has one fallopian tube removed, thinks it is the left, had tubal as well. Has Liletta IUD and no menses w/ that. Does well. Does not plan future pregnancies. Has had current Liletta about 2 years. 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 PAST MEDICAL HISTORY Diagnosis Date Anxiety state Pty reported depression Bilateral ovarian cysts Pt reported PAST SURGICAL HISTORY Procedure Laterality Date ECTOPIC - TREATMENT LIGATE FALLOPIAN TUBE Bilateral TONSILLECTOMY & ADENOIDECTOMY <AGE 12 VAGINOSCOPY 02/10/2004 FAMILY HISTORY Problem Relation Age of Onset Cervical Cancer Mother Diabetes Father Hypertension Father Heart disease Father CAD Crohn's Disease Brother Hypertension Maternal Grandmother Hypertension Maternal Grandfather Social History Tobacco Use Smoking status: Former Types: Cigarettes Smokeless tobacco: Never Vaping Use Vaping status: Never Used Substance Use Topics Alcohol use: Yes Comment: occasional Drug use: Never Current Outpatient Medications Medication Sig tiZANidine (ZANAFLEX) 4 mg tablet Take 1 tablet by mouth every 12 (twelve) hours. levonorgestrel (LILETTA) 20.4 mcg/24 hrs (8 yrs) 52 mg IUD 1 each by INTRAUTERINE route one time only. Placed 03/29/2023 phentermine-topiramate ER (QSYMIA) 15-92 mg 24 Hr Capsule Take 1 capsule by mouth once daily. (Patient not taking: Reported on 02/09/2025) Phentermine HCl 30 mg capsule Take 30 mg by mouth daily before breakfast. (Patient not taking: Reported on 12/14/2024) venlafaxine ER (EFFEXOR XR) 150 mg 24 hr capsule Take 1 capsule by mouth every afternoon. (Patient not taking: Reported on 02/09/2025) naproxen (NAPROSYN) 500 mg tablet Take 500 mg by mouth twice daily as needed. (Patient not taking: Reported on 02/09/2025) No current facility-administered medications for this visit. Allergies As of Date: 02/09/2025 (No Known Allergies) Fully Assessed 02/09/2025 REVIEW OF SYSTEMS Abdomen: No bloating, early satiety, indigestion, or increased flatulence. No abdominal pain, nausea, vomiting, diarrhea, or constipation. Bladder: No dysuria, gross hematuria, urinary frequency, urinary urgency, or incontinence. Allergies and current medication updated:Yes SENSITIVE EXAM: Sensitive exam not performed. EXAM: BP 106/72 Pulse 75 Ht 5' 6.25 (1.68m) Wt 184 lb (83.5kg) SpO2 97% BMI 29.47 kg/(m^2). GENERAL: pleasant, female in no apparent distress ASSESSMENT AND PLAN: Assessment & Plan Ovarian cyst, complex Pelvic pain in female Sterilization decision for surgery today. D/w her r/b/a to surgery. D/w her likely benign but will need to await final pathology for definitive diagnosis. D/w her she farooq be permanently unable to bear children. D/w her cannot guarantee resolution of pain as is likely multifactorial. Questions answered. She desires to proceed. Brian Galindo MD documented in this encounter [facility] 02-09-2025 History and physical note Pre-Op History and Physical HPI: The patient is a 44 year old female presenting for pre-operative visit. She is scheduled for laparoscopic RSO and left salpingectomy, for sterilization request and right ovarian cyst and pelvic pain on 02/25/25. Procedure discussed along with risks, benefits and complications. Other alternatives discussed for management. Consent form signed? Yes. PAST MEDICAL HISTORY Diagnosis Date Anxiety state Pty reported depression Bilateral ovarian cysts Pt reported PAST SURGICAL HISTORY Procedure Laterality Date ECTOPIC - TREATMENT LIGATE FALLOPIAN TUBE Bilateral TONSILLECTOMY & ADENOIDECTOMY VAGINOSCOPY 02/10/2004 Current Outpatient Medications Medication Sig Dispense Refill tiZANidine (ZANAFLEX) 4 mg tablet Take 1 tablet by mouth every 12 (twelve) hours. levonorgestrel (LILETTA) 20.4 mcg/24 hrs (8 yrs) 52 mg IUD 1 each by INTRAUTERINE route one time only. Placed 03/29/2023 phentermine-topiramate ER (QSYMIA) 15-92 mg 24 Hr Capsule Take 1 capsule by mouth once daily. (Patient not taking: Reported on 02/09/2025) Phentermine HCl 30 mg capsule Take 30 mg by mouth daily before breakfast. (Patient not taking: Reported on 12/14/2024) venlafaxine ER (EFFEXOR XR) 150 mg 24 hr capsule Take 1 capsule by mouth every afternoon. (Patient not taking: Reported on 02/09/2025) naproxen (NAPROSYN) 500 mg tablet Take 500 mg by mouth twice daily as needed. (Patient not taking: Reported on 02/09/2025) No current facility-administered medications for this visit. ALLERGIES: Patient has no known allergies. PERSONAL HISTORY: Social History Tobacco Use Smoking status: Former Types: Cigarettes Smokeless tobacco: Never Vaping Use Vaping status: Never Used Substance Use Topics Alcohol use: Yes Comment: occasional Drug use: Never FAMILY HISTORY: FAMILY HISTORY Problem Relation Age of Onset Cervical Cancer Mother Diabetes Father Hypertension Father Heart disease Father CAD Crohn's Disease Brother Hypertension Maternal Grandmother Hypertension Maternal Grandfather REVIEW OF SYMPTOMS: GENERAL: denies fevers or chills ENDOCRINOLOGY: has not been on steroids Cardiology : denies palpitations or chest pain Respiratory: denies SOB or cough Hematology: denies history of prolonged bleeding or easy bruising or VTE Allergy: Denies history of personal or family history of allergy to anesthesia PHYSICAL EXAMINATION: VITALS: Blood pressure 106/72, pulse 75, height 168.3 cm (5' 6.25), weight 83.5 kg (184 lb), SpO2 97%. GENERAL: The patient is well nourished, well hydrated in no acute distress. , The patient is oriented to time, place, and person. NECK: Supple. No lynphadenopathy, normal thyroid, no thyromegaly. LUNGS: Clear to auscultation bilaterally. no wheezes, rhonchi or rales HEART: Regular rate and rhythm, Normal heart sounds, and No murmurs or gallops IMPRESSION:pelvic pain, right ovarian cyst, sterilzation request PLAN: The risks/benefits/alternatives and personal involved for the planned laparoscopic RSO, left salpingectomy were reviewed with the patient. Her questions were answered to her satisfaction and she desires to proceed. Consent was signed. I reviewed with her postop instructions and expectations. I have reviewed and updated past medical and surgical history, medications and allergies Brian Galindo M.D. [facility] 02-09-2025 History and physical note Pre-Op History and Physical HPI: The patient is a 44 year old female presenting for pre-operative visit. She is scheduled for laparoscopic RSO and left salpingectomy, for sterilization request and right ovarian cyst and pelvic pain on 02/25/25. Procedure discussed along with risks, benefits and complications. Other alternatives discussed for management. Consent form signed? Yes. PAST MEDICAL HISTORY Diagnosis Date Anxiety state Pty reported depression Bilateral ovarian cysts Pt reported PAST SURGICAL HISTORY Procedure Laterality Date ECTOPIC - TREATMENT LIGATE FALLOPIAN TUBE Bilateral TONSILLECTOMY & ADENOIDECTOMY <AGE 10 VAGINOSCOPY 02/10/2004 Current Outpatient Medications Medication Sig Dispense Refill tiZANidine (ZANAFLEX) 4 mg tablet Take 1 tablet by mouth every 12 (twelve) hours. levonorgestrel (LILETTA) 20.4 mcg/24 hrs (8 yrs) 52 mg IUD 1 each by INTRAUTERINE route one time only. Placed 03/29/2023 phentermine-topiramate ER (QSYMIA) 15-92 mg 24 Hr Capsule Take 1 capsule by mouth once daily. (Patient not taking: Reported on 02/09/2025) Phentermine HCl 30 mg capsule Take 30 mg by mouth daily before breakfast. (Patient not taking: Reported on 12/14/2024) venlafaxine ER (EFFEXOR XR) 150 mg 24 hr capsule Take 1 capsule by mouth every afternoon. (Patient not taking: Reported on 02/09/2025) naproxen (NAPROSYN) 500 mg tablet Take 500 mg by mouth twice daily as needed. (Patient not taking: Reported on 02/09/2025) No current facility-administered medications for this visit. ALLERGIES: Patient has no known allergies. PERSONAL HISTORY: Social History Tobacco Use Smoking status: Former Types: Cigarettes Smokeless tobacco: Never Vaping Use Vaping status: Never Used Substance Use Topics Alcohol use: Yes Comment: occasional Drug use: Never FAMILY HISTORY: FAMILY HISTORY Problem Relation Age of Onset Cervical Cancer Mother Diabetes Father Hypertension Father Heart disease Father CAD Crohn's Disease Brother Hypertension Maternal Grandmother Hypertension Maternal Grandfather REVIEW OF SYMPTOMS: GENERAL: denies fevers or chills ENDOCRINOLOGY: has not been on steroids Cardiology : denies palpitations or chest pain Respiratory: denies SOB or cough Hematology: denies history of prolonged bleeding or easy bruising or VTE Allergy: Denies history of personal or family history of allergy to anesthesia PHYSICAL EXAMINATION: VITALS: Blood pressure 106/72, pulse 75, height 168.3 cm (5' 6.25), weight 83.5 kg (184 lb), SpO2 97%. GENERAL: The patient is well nourished, well hydrated in no acute distress. , The patient is oriented to time, place, and person. NECK: Supple. No lynphadenopathy, normal thyroid, no thyromegaly. LUNGS: Clear to auscultation bilaterally. no wheezes, rhonchi or rales HEART: Regular rate and rhythm, Normal heart sounds, and No murmurs or gallops IMPRESSION:pelvic pain, right ovarian cyst, sterilzation request PLAN: The risks/benefits/alternatives and personal involved for the planned laparoscopic RSO, left salpingectomy were reviewed with the patient. Her questions were answered to her satisfaction and she desires to proceed. Consent was signed. I reviewed with her postop instructions and expectations. I have reviewed and updated past medical and surgical history, medications and allergies Brian Galindo M.D. documented in this encounter [facility] 12-22-2024 Telephone encounter Note Left message to call office. Next available surgery dates at [facility] are 01/22/25, 02/11/25, and 02/25/25. Patient will need a pre-operative appointment scheduled with Dr. Galindo [facility] 12-22-2024 Miscellaneous Notes Left message to call office. Next available surgery dates at [facility] are 01/22/25, 02/11/25, and 02/25/25. Patient will need a pre-operative appointment scheduled with Dr. Galindo documented in this encounter [facility] 12-14-2024 Note HNO ID: [id number] Author: CIARA NUGENT MD Service: ? Author Type: Physician Type: Progress Notes Filed: 12/14/2024 09:43 Note Text: Brenda Ross is a 44 year old female who presents for problem visit for a persistent Right ovarian cyst with minimal complexity but that has persisted for ~ 9 years and noting hx of a right ectopic 20 years ago with salpingectomy. The issue has become increasingly problematic with episodes of severe pelvic pain with constant dull pain. 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 PAST MEDICAL HISTORY Diagnosis Date Anxiety state Pty reported depression Bilateral ovarian cysts Pt reported PAST SURGICAL HISTORY Procedure Laterality Date ECTOPIC - TREATMENT LIGATE FALLOPIAN TUBE Bilateral TONSILLECTOMY AND ADENOIDECTOMY VAGINOSCOPY 02/10/2004 FAMILY HISTORY Problem Relation Age of Onset Cervical Cancer Mother Diabetes Father Hypertension Father Hypertension Maternal Grandmother Hypertension Maternal Grandfather Social History Tobacco Use Smoking status: Former Types: Cigarettes Smokeless tobacco: Never Vaping Use Vaping status: Never Used Substance Use Topics Alcohol use: Yes Comment: occasional Drug use: Never Current Outpatient Medications Medication Sig phentermine-topiramate ER (QSYMIA) 15-92 mg 24 Hr Capsule Take 1 capsule by mouth once daily. Phentermine HCl 30 mg capsule Take 30 mg by mouth daily before breakfast. (Patient not taking: Reported on 12/14/2024) venlafaxine ER (EFFEXOR XR) 150 mg 24 hr capsule Take 1 capsule by mouth every afternoon. tiZANidine (ZANAFLEX) 4 mg tablet Take 1 tablet by mouth every 12 (twelve) hours. naproxen (NAPROSYN) 500 mg tablet Take 500 mg by mouth twice daily as needed. levonorgestrel (LILETTA) 20.4 mcg/24 hrs (8 yrs) 52 mg IUD 1 each by INTRAUTERINE route one time only. Placed 03/29/2023 No current facility-administered medications for this visit. Allergies As of Date: 12/14/2024 (No Known Allergies) Fully Assessed 12/14/2024 REVIEW OF SYSTEMS Abdomen: No bloating, early satiety, indigestion, or increased flatulence. No abdominal pain, nausea, vomiting, diarrhea, or constipation. Bladder: No dysuria, gross hematuria, urinary frequency, urinary urgency, or incontinence. Breast: No breast lumps, nipple d/c, overlying skin changes, redness or skin retraction. Expanded ROS: N/A Allergies and current medication updated:Yes SENSITIVE EXAM: Sensitive exam not performed. EXAM: There were no vitals taken for this visit. GENERAL: pleasant, female in no apparent distress Normal appearing anteverted, axial, retroverted, mobile and tilted uterus that measures 83 mm x 47 mm x 70 mm. Endometrium measures 13.7 mm. 3D rendering of the uterus confirms the proper location of the IUD within the endometrial cavity. Normal appearing left ovary. Right ovary is enlarged and measures 103 mm x 79 mm x 34 mm. 1. Size 31 mm x 29 mm x 28 mm. Hemorrhagic cyst with reticular pattern/clot 2. Size 82 mm x 70 mm x 52 mm. Unilocular simple cyst No adnexal masses were observed. There is free fluid visualized in the peritoneal cavity. Comparison to ultrasound on 05/29/2023: Right Ovary: 83 x 44 x 89 mm with a simple cyst of 84 mm Left ovary 40 x 21 x 24 mm with a simple cyst 24 mm. ASSESSMENT AND PLAN: Assessment AND Plan Ovarian cyst, complex Pelvic pain in female Referral to Dr. Galindo to discuss laparoscopic right oophorectomy if possible ftft >30 m Ciara Nugent MD [facility] 12-14-2024 History of Present illness Narrative Brenda Ross is a 44 year old female who presents for problem visit for a persistent Right ovarian cyst with minimal complexity but that has persisted for ~ 9 years and noting hx of a right ectopic 20 years ago with salpingectomy. The issue has become increasingly problematic with episodes of severe pelvic pain with constant dull pain. 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 PAST MEDICAL HISTORY Diagnosis Date Anxiety state Pty reported depression Bilateral ovarian cysts Pt reported PAST SURGICAL HISTORY Procedure Laterality Date ECTOPIC - TREATMENT LIGATE FALLOPIAN TUBE Bilateral TONSILLECTOMY & ADENOIDECTOMY <AGE 10 VAGINOSCOPY 02/10/2004 FAMILY HISTORY Problem Relation Age of Onset Cervical Cancer Mother Diabetes Father Hypertension Father Hypertension Maternal Grandmother Hypertension Maternal Grandfather Social History Tobacco Use Smoking status: Former Types: Cigarettes Smokeless tobacco: Never Vaping Use Vaping status: Never Used Substance Use Topics Alcohol use: Yes Comment: occasional Drug use: Never Current Outpatient Medications Medication Sig phentermine-topiramate ER (QSYMIA) 15-92 mg 24 Hr Capsule Take 1 capsule by mouth once daily. Phentermine HCl 30 mg capsule Take 30 mg by mouth daily before breakfast. (Patient not taking: Reported on 12/14/2024) venlafaxine ER (EFFEXOR XR) 150 mg 24 hr capsule Take 1 capsule by mouth every afternoon. tiZANidine (ZANAFLEX) 4 mg tablet Take 1 tablet by mouth every 12 (twelve) hours. naproxen (NAPROSYN) 500 mg tablet Take 500 mg by mouth twice daily as needed. levonorgestrel (LILETTA) 20.4 mcg/24 hrs (8 yrs) 52 mg IUD 1 each by INTRAUTERINE route one time only. Placed 03/29/2023 No current facility-administered medications for this visit. Allergies As of Date: 12/14/2024 (No Known Allergies) Fully Assessed 12/14/2024 REVIEW OF SYSTEMS Abdomen: No bloating, early satiety, indigestion, or increased flatulence. No abdominal pain, nausea, vomiting, diarrhea, or constipation. Bladder: No dysuria, gross hematuria, urinary frequency, urinary urgency, or incontinence. Breast: No breast lumps, nipple d/c, overlying skin changes, redness or skin retraction. Expanded ROS: N/A Allergies and current medication updated:Yes SENSITIVE EXAM: Sensitive exam not performed. EXAM: There were no vitals taken for this visit. GENERAL: pleasant, female in no apparent distress Normal appearing anteverted, axial, retroverted, mobile and tilted uterus that measures 83 mm x 47 mm x 70 mm. Endometrium measures 13.7 mm. 3D rendering of the uterus confirms the proper location of the IUD within the endometrial cavity. Normal appearing left ovary. Right ovary is enlarged and measures 103 mm x 79 mm x 34 mm. 1. Size 31 mm x 29 mm x 28 mm. Hemorrhagic cyst with reticular pattern/clot 2. Size 82 mm x 70 mm x 52 mm. Unilocular simple cyst No adnexal masses were observed. There is free fluid visualized in the peritoneal cavity. Comparison to ultrasound on 05/29/2023: Right Ovary: 83 x 44 x 89 mm with a simple cyst of 84 mm Left ovary 40 x 21 x 24 mm with a simple cyst 24 mm. ASSESSMENT AND PLAN: Assessment & Plan Ovarian cyst, complex Pelvic pain in female Referral to Dr. Galindo to discuss laparoscopic right oophorectomy if possible ftft >30 m Ciara Nugent MD documented in this encounter [facility] 12-10-2024 Telephone encounter Note Please contact patient to schedule follow up appointment with either Dr. Galindo or - whoever she prefers. Lea Chilel RN [facility] 12-10-2024 Miscellaneous Notes Please contact patient to schedule follow up appointment with either Dr. Galindo or - whoever she prefers. Lea Chilel RN Send letter about normal pap if she does not have mychart. Brian Galindo MD documented in this encounter [facility] 12-09-2024 Progress note Formatting of t his note might be different from the original. Send letter about normal pap if she does not have mychart. Brian Galindo MD [facility] Work Phone: 12-07-2024 Note HNO ID: [id number] Author: EWELINA AGUILAR MD Service: ? 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 Encounter Diagnosis ICD-10-CM 1. Pelvic pain in female R10.2 Please see report under imaging tab. 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 Encounter Diagnosis ICD-10-CM 1. Pelvic pain in female R10.2 Please see report under imaging tab. Ewelina Aguilar MD December 07, 2024 8:49 PM documented in this encounter [facility] 12-04-2024 Note HNO ID: [id number] Author: SETH GARCIA Mammo Tech Service: ? Author Type: Meeting Specialist Type: Progress Notes Filed: 12/04/2024 11:17 Note Text: Radiology Service Progress Note PATIENT NAME: Brenda Ross DATE OF SERVICE: December 04, 2024 TIME: 11:16 AM PATIENT IDENTITY VERIFICATION COMPLETED USING TWO (2) IDENTIFIERS: Name and Date of confirmed by patient verbally. FALL SCREENING: Has the patient had 2 falls in the last year or 1 fall with injury or currently using an Ambulatory Assistive Device (Walker, Cane, Wheelchair, Crutches, etc.)? No PATIENT GENDER DATA: Assigned female at . status: : No status: NO. PATIENT RELEVANT IMPLANT DATA REVIEWED: Not Applicable PATIENT PRESENTS WITH AN IMPLANTABLE OR ATTACHED TELEVISION TECHNICIAN: No RADIOLOGY DEPARTMENT: Mammography PERIPHERAL IV DATA: Not applicable SIGNED BY: Jesusita Barton December 04, 2024 11:16 AM [facility] 11-30-2024 Note HNO ID: [id number] Author: CIARA NUGENT MD Service: ? 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 Brenda is a 44 year old who presents for an annual gynecologic exam with complaints, pelvic pain. Still get period: No LMP: no menses with IUD Lyletta placed 03/29/2023 Pt reported, Tubal ligation Menopause symptoms: Vaginal dryness Time with current partner: 17 years Number of lifetime partners: 30 control frequency: Always HPV vaccine: No; HPV:negative Last pap smear: Pt reported 07/12/2021 Pt reported as negative History of abnormal pap: Yes, history of abnormal PAP smears Bothersome pelvic pain: Yes Last mammogram: [facility] 2021 Pt reported normal. 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 PAST MEDICAL HISTORY Diagnosis Date Anxiety state Pty reported depression Bilateral ovarian cysts Pt reported PAST SURGICAL HISTORY Procedure Laterality Date ECTOPIC - TREATMENT LIGATE FALLOPIAN TUBE Bilateral TONSILLECTOMY AND ADENOIDECTOMY VAGINOSCOPY 02/10/2004 FAMILY HISTORY Problem Relation Age of Onset Cervical Cancer Mother Diabetes Father Hypertension Father Hypertension Maternal Grandmother Hypertension Maternal Grandfather SOCIAL HISTORY Social History Tobacco Use Smoking status: Former Types: Cigarettes Smokeless tobacco: Never Vaping Use Vaping status: Never Used Substance Use Topics Alcohol use: Yes Comment: occasional Drug use: Never REVIEW OF SYSTEMS Abdomen: No abdominal pain, nausea, vomiting, diarrhea, or constipation. No bloating, early satiety, indigestion, or increased flatulence. Bladder: No dysuria, gross hematuria, urinary frequency, urinary urgency, or incontinence. Breast: No breast lumps, nipple d/c, overlying skin changes, redness or skin retraction. Allergies and current medication updated:Yes SENSITIVE EXAM: The sensitive examination was discussed with the Patient or Patient's Authorized Fibre Technologist. As applicable, any other physician, advance practice provider, medical student, or other health professional student that will be observing or involved in the sensitive examination for educational or training purposes was discussed with the Patient or Authorized Fibre Technologist. The Patient or Authorized Fibre Technologist has agreed to proceed with the sensitive examination. (Sensitive examination includes inspection and/or palpation of the breasts, pelvis, prostate and anorectal regions). EXAM: BP 124/70 Ht 5' 6 (1.68m) Wt 178 lb 3.2 oz (80.8kg) BMI 28.78 kg/(m2). GENERAL: pleasant, female in no apparent distress HEENT: Normocephalic, atraumatic, mucus membranes moist, and no lesions NECK: Supple, full range of motion, no adenopathy, and thyroid normal DERMATOLOGY: Normal, without lesions, non-icteric, and non-hirsute BREAST: soft, non-tender, symmetric, no dominant mass, normal nipple-areolar complex, no lymphadenopathy, and no nipple discharge CHEST: Normal inspiratory effort ABDOMEN: soft, non-tender, and no masses PELVIC: external genitalia normal, normal Bartholin's glands, urethra, Sumiton's glands, no vulvar lesions, no cervical lesions, good vaginal support, physiologic discharge present, normal appearing perineal body and perianal region BIMANUAL: uterus normal size, shape and consistency, retroverted, no adnexal masses, non-tender, and Mild tenderness getting worse after exam RECTOVAGINAL: rectovaginal exam negative for any masses or nodularity. NEURO: alert and oriented x3,exam grossly non-focal EXTREMITIES: normal ASSESSMENT/PLAN: 1) Health maintenance: Pap done with reflex HPV. Mammogram ordered. 2) Contraception: IUD. Contraceptive options reviewed and information provided. 3) STD screening: Declined STD check. 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 Brenda is a 44 year old who presents for an annual gynecologic exam with complaints, pelvic pain. Still get period: No LMP: no menses with IUD Lyletta placed 03/29/2023 Pt reported, Tubal ligation Menopause symptoms: Vaginal dryness Time with current partner: 17 years Number of lifetime partners: 30 control frequency: Always HPV vaccine: No; HPV:negative Last pap smear: Pt reported 07/12/2021 Pt reported as negative History of abnormal pap: Yes, history of abnormal PAP smears Bothersome pelvic pain: Yes Last mammogram: [facility] 2021 Pt reported normal. 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 PAST MEDICAL HISTORY Diagnosis Date Anxiety state Pty reported depression Bilateral ovarian cysts Pt reported PAST SURGICAL HISTORY Procedure Laterality Date ECTOPIC - TREATMENT LIGATE FALLOPIAN TUBE Bilateral TONSILLECTOMY & ADENOIDECTOMY <AGE 10 VAGINOSCOPY 02/10/2004 FAMILY HISTORY Problem Relation Age of Onset Cervical Cancer Mother Diabetes Father Hypertension Father Hypertension Maternal Grandmother Hypertension Maternal Grandfather SOCIAL HISTORY Social History Tobacco Use Smoking status: Former Types: Cigarettes Smokeless tobacco: Never Vaping Use Vaping status: Never Used Substance Use Topics Alcohol use: Yes Comment: occasional Drug use: Never REVIEW OF SYSTEMS Abdomen: No abdominal pain, nausea, vomiting, diarrhea, or constipation. No bloating, early satiety, indigestion, or increased flatulence. Bladder: No dysuria, gross hematuria, urinary frequency, urinary urgency, or incontinence. Breast: No breast lumps, nipple d/c, overlying skin changes, redness or skin retraction. Allergies and current medication updated:Yes SENSITIVE EXAM: The sensitive examination was discussed with the Patient or Patient's Authorized Fibre Technologist. As applicable, any other physician, advance practice provider, medical student, or other health professional student that will be observing or involved in the sensitive examination for educational or training purposes was discussed with the Patient or Authorized Fibre Technologist. The Patient or Authorized Fibre Technologist has agreed to proceed with the sensitive examination. (Sensitive examination includes inspection and/or palpation of the breasts, pelvis, prostate and anorectal regions). EXAM: BP 124/70 Ht 5' 6 (1.68m) Wt 178 lb 3.2 oz (80.8kg) BMI 28.78 kg/(m^2). GENERAL: pleasant, female in no apparent distress HEENT: Normocephalic, atraumatic, mucus membranes moist, and no lesions NECK: Supple, full range of motion, no adenopathy, and thyroid normal DERMATOLOGY: Normal, without lesions, non-icteric, and non-hirsute BREAST: soft, non-tender, symmetric, no dominant mass, normal nipple-areolar complex, no lymphadenopathy, and no nipple discharge CHEST: Normal inspiratory effort ABDOMEN: soft, non-tender, and no masses PELVIC: external genitalia normal, normal Bartholin's glands, urethra, Sumiton's glands, no vulvar lesions, no cervical lesions, good vaginal support, physiologic discharge present, normal appearing perineal body and perianal region BIMANUAL: uterus normal size, shape and consistency, retroverted, no adnexal masses, non-tender, and Mild tenderness getting worse after exam RECTOVAGINAL: rectovaginal exam negative for any masses or nodularity. NEURO: alert and oriented x3,exam grossly non-focal EXTREMITIES: normal ASSESSMENT/PLAN: 1) Health maintenance: Pap done with reflex HPV. Mammogram ordered. 2) Contraception: IUD. Contraceptive options reviewed and information provided. 3) STD screening: Declined STD check. 4) Follow up one year or sooner as needed 5) Pelvic ultrassound Ciara Nugent MD documented in this encounter [facility] 05-30-2023 Miscellaneous Notes Patient notified and scheduled for follow up ultrasound. COLLEEN BERRY RN Please let the pt know that she does still have B/L ovarian cyst : Right Ovary: 8.3 x 4.4 x 8.9 cm Simple cyst within it of 8.4 cm Left Ovary: 4 x 2.1 x 2.4 cm Simple cyst within it of 2.4 cm The right has increased in size and the left is about the same. Repeat US in 8 weeks, review torsion precautions. Gayatri Lenz APRN.CNP documented in this encounter [facility] 05-29-2023 History of Present illness Narrative Radiology Service Progress Note PATIENT NAME: Brenda Ross DATE OF SERVICE: May 29, 2023 TIME: 8:19 AM PATIENT IDENTITY VERIFICATION COMPLETED USING TWO (2) IDENTIFIERS: Name and Date of confirmed by patient verbally. FALL SCREENING: Has the patient had 2 falls in the last year or 1 fall with injury or currently using an Ambulatory Assistive Device (Walker, Cane, Wheelchair, Crutches, etc.)? No PATIENT GENDER DATA: Female. status: : No status: NO. PATIENT RELEVANT IMPLANT DATA REVIEWED: Not Applicable RADIOLOGY DEPARTMENT: Ultrasound PERIPHERAL IV DATA: Not applicable SIGNED BY: Isabella Baptiste RDMS May 29, 2023 8:19 AM documented in this encounter [facility] 04-02-2023 History of Present illness Narrative Brenda Ross is a 42 year old female who presents for ED follow up for ovarian cyst HPI: Patient was seen in [place] ED on 03/29/2023 for severe pelvic pain. Pelvic ultrasound was done that showed a 7.1 x 7.8 x 4.4 cm right ovarian cyst and multiple small cyst on the left ovary with the largest measuring 2.8 x 2.6 x 2.3 cm. Patient was treated for the pain and sent home with Percocet and naproxen. She states that she has only been needing the naproxen and not only use the Percocet twice. She states that the pain is much better today and more manageable. Patient denies any bleeding, fevers, chills or unusual vaginal discharge. Patient does have a history of large ovarian cyst on the right ovary she states that she had 1 about 10 cm at 1 point in time. OB History No obstetric history on file. 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 No past medical history on file. No past surgical history on file. No family history on file. Social History Tobacco Use Smoking status: Former Types: Cigarettes Smokeless tobacco: Never Vaping Use Vaping Use: Never used Substance Use Topics Alcohol use: Yes Comment: occasional Drug use: Never Current Outpatient Medications Medication Sig venlafaxine ER (EFFEXOR XR) 150 mg 24 hr capsule Take 1 capsule by mouth every afternoon. tiZANidine (ZANAFLEX) 4 mg tablet Take 1 tablet by mouth every 12 (twelve) hours. naproxen (NAPROSYN) 500 mg tablet Take 500 mg by mouth twice daily as needed. levonorgestrel (LILETTA) 20.4 mcg/24 hrs (8 yrs) 52 mg IUD 1 Each by INTRAUTERINE route one time only. No current facility-administered medications for this visit. Allergies As of Date: 04/02/2023 (No Known Allergies) REVIEW OF SYSTEMS Abdomen: No bloating, early satiety, indigestion, or increased flatulence. No abdominal pain, nausea, vomiting, diarrhea, or constipation. Bladder: No dysuria, gross hematuria, urinary frequency, urinary urgency, or incontinence. Expanded ROS: N/A Allergies and current medication updated:Yes EXAM: BP 118/66 Wt 180 lb (81.6kg) GENERAL: pleasant, female in no apparent distress HEENT: Normocephalic, atraumatic, mucus membranes moist, and no lesions CHEST: Normal inspiratory effort NEURO: alert and oriented x3,exam grossly non-focal EXTREMITIES: normal ASSESSMENT/PLAN: 1. Ovarian cyst, right - ICD9: 620.2, ICD10: N83.201 - US FEMALE PELVIS TRANSVAG Pelvic ultrasound to be done in 6 to 8 weeks to monitor ovarian cyst. Ovarian torsion precautions discussed with patient. Gayatri Lenz APRN.CNP Medical Decision Making: Problems: Low: Acute, uncomplicated illness or injury Data: Unique test(s) ordered: 1 Risk: Low: Low risk from testing/treatment Medical Decision Making Level: 3 - Low documented in this encounter [facility] 03-29-2023 Discharge summary Note Date/Time March 29, 2023 4:52pm [facility] Medical Records Department [address] [place] [id number] Emergency Department Summary 03/29/23 MR#: [id number] Acct: [id number] Name: BRENDA ROSS Rep #:[id number] : 1980 42 From: Frankie Arthur MD PCP: Dr. Delvin Garcia MD Status:RE G ER Location: ED HPI HPI - GI History of Present Illness Chief Complaint: Abd Pain Informant: patient Narrative Narrative: Patient presents with abdominal pain. Patient states she was fine till about 2 or so hours ago. She started get pain in her right lower abdomen and her right side and back. She thought she might be constipated because a week or so ago she had been on Percocet for a tooth ache. She had been still moving her bowels though. Patient straining to move her bowels. She was able to move her bowels but the pain increased. She statesshe is nauseated but has not vomited. She cannot get comfortable. She denies history of kidney stone. She denies any trouble or change in urination. Patient has had an ectopic and tubal removal and then it sounds like she also had tubal ligation on other side. She has an IUD so she does not know when her last menstrual cycle was. She still has her appendix and gallbladder. She reportedly had an ileus once but is not clear exactly the source of this. [facility] Medical History Ileus, unspecified Home Medications cetirizine 10 mg capsule (Zyrtec) 10 mg PO DAILY 01/06/14 [History Last Taken 07/03/15 15:00] docusate sodium 100 mg capsule (DOK) 100 mg PO BID PRN PRN Constipation ##30 07/04/15 [Rx Last Taken Unknown] naproxen 250 mg tablet 1 - 2 mg (0.004 - 0.008 x 250 mg) PO BID PRN PRN Pain ##40 07/04/15 [Rx Last Taken Unknown] naproxen 500 mg tablet 500 mg PO BID #14 tabs 03/29/23 [Rx Last Taken Unknown] ondansetron 4 mg disintegrating tablet 4 mg PO Q8H PRN PRN Nausea #10 tabs 03/29/23 [Rx Last Taken Unknown] oxycodone-acetaminophen 5 mg-325 mg tablet 1 tab PO Q6H PRN PRN Pain 3 days #12 TABLETS 03/29/23 [Rx Last Taken Unknown] Allergy/AdvReac Type Severity Reaction Status Date / Time No Known Allergies Allergy Verified 03/29/23 16:04 Social History Smoking Status: Former smoker ROS ROS ED ROS Narrative A complete review of systems was performed and is negative except as documented in the history of present illness. Some specific details below. Constitutional: No recent fevers or chills. No malaise. She felt perfectly fine until this pain started a couple hours ago EYE: No visual complaints or pain. ENT: No difficulty swallowing. No swelling. No pain. No GERD. CV: No chest pain or palpitations. Respiratory: No dyspnea. No hemoptysis. No difficulty taking breaths. GI: Please see history of present illness. : No frequency dysuria or hematuria. Musculoskeletal: No recent trauma. No pains. Skin: No rash. Nondiaphoretic. Neuro: No weakness or numbness. Endocrine: No polyuria or polydipsia. EXAM Physical Exam Narrative Exam Narrative: CONSTITUTIONAL: Patient is nontoxic in appearance. But the patient does look uncomfortable. She is moving back and forth on the bed. She has trouble sitting still due to the pain. HEENT: No notable trauma. Mucous membranes moist. EYES: No conjunctival injection. No proptosis. No icterus. CARDIOVASCULAR: Regular rate. Regular rhythm. No notable murmur. No JVD. RESPIRATORY: No respiratory distress. Breathing is unlabored. No wheezes. No rhonchi. No rales. No pain with a deep breath. GASTROINTESTINAL: Not distended. Bowel sounds are normal. Despite her discomfort, she does not have any marked tenderness. She does seem to have painat the right lateral and lower quadrant area but is not notably tender. But shedoes have some right-sided CVA tenderness. GENITOURINARY: No tenderness over the bladder. She does have right sided CVA tenderness. No skin changes. MUSCULOSKELETAL: Atraumatic. No peripheral edema. No cord. No tenderness along the deep venous system. No asymmetry. NEUROLOGICAL: Patient is alert and appropriate. No focal deficit noted. SKIN: No noted rashes. No diaphoresis. PSYCHIATRIC: Patient is calm. Mood is appropriate. Const Vital Signs: 03/29/23 16:04 03/29/23 17:28 Temperature 96.9 F L Temperature Source Temporal Pulse Rate 72 78 Respiratory Rate 18 14 Blood Pressure 147/88 H 139/78 H Blood Pressure Mean 107 98 Pulse Ox 99 98 Oxygen Delivery Method Room Air Room Air MDM MDM MDM Narrative Medical decision making narrative: Patient CBC is normal. Patient's electrolytes are normal. Patient's liver function test are normal. Patient's lipase normal. Patient's serum is negative. Patient's urinalysis shows no acute process. My independent interpretation of her CT scan of the abdomen does show cystic structure in the pelvis. No sign of obstruction. Final reading did mention mild ileus. However, the patient is moved her bowels today is passing gas and has good bowel sounds and is not distended. She only was nauseated once when the pain was very bad. Patient's ultrasound does show a large 7 cm ovarian cyst but no sign of torsion. Now that the patient has had pain meds she is feeling better. She got several doses. She is now isolating the pain to the right lower abdomen. But she has no fever white count and her appendix is seen and is normal. I think this pain is likely from her cyst. She has a history of a prior cyst on that size even larger than this. She states it was the size of a grapefruit. But they thinkthat likely resolved. That was almost 7 years ago. I think we get the patient home. She is able to eat and drink. She is moving her bowels. She will take senna at home which she has. Increase fluids. I do not think her symptoms really come from the ileus. I will give her Toradol hereto see if we get her pain even better. We will give her Naprosyn to go. I willwrite for some narcotics for the pain but I have encouraged her to try to avoid using this because she has had some constipation recently. If she has worseningpain, distention, vomiting, fevers or any other issues she should return. We did discuss that she needs to follow-up for the cyst. It is certainly possible that this could rupture or it may involute or it may end up needing surgery in the future. Lab Data Attestation: I reviewed the patient's lab results. Labs: Laboratory Results - last 24 hr 03/29/23 03/29/23 03/29/23 16:11 16:50 17:20 WBC 8.9 RBC 4.50 Hgb 13.8 Hct 39.9 MCV 88.7 MCH 30.7 MCHC 34.6 RDW Std Deviation 41.5 RDW Coeff of Dusty 12.6 Plt Count 274 MPV 9.7 Immature Gran % (Auto) 0.200 Neut % (Auto) 61.7 Lymph % (Auto) 28.3 [place] % (Auto) 7.3 Eos % (Auto) 1.7 Baso % (Auto) 0.8 Absolute Neuts (auto) 5.5 Absolute Lymphs (auto) 2.52 Nucleated RBC % 0 Sodium 140 Potassium 3.9 Chloride 107 Carbon Dioxide 28.0 Anion Gap 5 BUN 10 Creatinine 0.71 Estim Creat Clear Calc 94.66 Est GFR (MDRD) Af Amer 115 Est GFR (MDRD) Non-Af 95 BUN/Creatinine Ratio 14.1 Glucose 100 Calcium 9.3 Total Bilirubin 0.20 AST 11 L ALT 22 Alkaline Phosphatase 58 Total Protein 7.2 Albumin 4.0 Globulin 3.2 Albumin/Globulin Ratio 1.2 Lipase 40 Serum , Qual NEGATIVE Urine Color Yellow Urine Clarity Sl. Cloudy Urine pH 7.0 Ur Specific Anthon 1.015 Urine Protein 15 H Urine Glucose (UA) Normal Urine Ketones Negative Urine Occult Blood 10 H Urine Nitrite Negative Urine Bilirubin Negative Urine Urobilinogen Normal Ur Leukocyte Esterase 25 H Urine RBC 0 SEEN Urine WBC 0 SEEN Ur Squamous Epith Cells 0-5 SEEN Amorphous Sediment 1+ Urine Bacteria RARE Urine Mucus 0 SEEN Radiography Diagnostic Testing: Clinical Impression(s) from Imaging Studies Abdomen/Pelvis CT 03/29/23 16:49 IMPRESSION: Mild ileus with diffuse fecal retention in colon.. Postsurgical changes status post bilateral tubal ligation with mild cystic changes in the adnexa bilaterally with possible coexisting hydrosalpinx.. Large cystic mass in the pelvis likely ovarian. Pelvic sonogram is recommended for further assessment Electronically Signed: Bran Garcia MD at 18:24 EDT , Transvaginal US 03/29/23 18:32 IMPRESSION: Large right ovarian cyst measuring 7.1 x 7.8 x 4.4 cm. Multiple small cysts in left ovary largest measuring 2.8 x 2.6 x 2.3 cm Electronically Signed: Bran Garcia MD at 19:22 EDT , ADDENDUM: 03/29/232005 IMPRESSION: undefined Discharge Plan Triage Chief Complaint: Abd Pain ED Provider: Frankie Arthur Dx/Rx/DC Orders Clinical Impression: Abdominal pain, Cyst of right ovary Instructions: ED Abdominal Pain Unkn Cause Fem, ED Ovarian Cyst Prescriptions: New oxycodone-acetaminophen [oxycodone-acetaminophen] 5-325 mg tablet 1 tab PO Q6H PRN PRN (Reason: Pain) 3 Days Qty: 12 0RF naproxen 500 mg tablet 500 mg PO BID Qty: 14 0RF ondansetron [ondansetron] 4 mg tablet,disintegrating 4 mg PO Q8H PRN PRN (Reason: Nausea) Qty: 10 0RF No Action cetirizine [Zyrtec] 10 MG capsule 10 mg PO DAILY naproxen 250 MG tablet 1 - 2 mg PO BID PRN PRN (Reason: Pain) Qty: 40 0RF docusate sodium [DOK] 100 MG capsule 100 mg PO BID PRN PRN (Reason: Constipation) Qty: 30 0RF Primary Care Provider: Delvin Garcia Referrals: Delvin Garcia MD [Primary Care Provider] - Brian Galindo MD [Med Staff - Active Staff] - As soon as possible Disposition Disposition: Home, Self Care What to do if you have Problems For any increased pain, shortness of breath, bleeding, nausea or vomiting, chestpain, or any unexpected problems, contact your Primary Care Provider. Call [facility] ([phone]) or report to the closest Emergency Room. Call 911 if necessary. 03/29/232058 <Electronically signed by Frankie Arthur MD> Cosigner Signature (if applicable): CC: Dr. Delvin Garcia MD ~ Signed [facility] Work Phone: evaluation noteNo assessment information available [facility] Work Phone: evaluation note* Diagnosis Ovarian cyst, right- Primary Other and unspecified ovarian cyst documented in this encounter [facility] note* Diagnosis Ovarian cyst, right Other and unspecified ovarian cyst [facility] Diagnosis Cysts of both ovaries- Primary Other and unspecified ovarian cyst documented in this encounter [facility] note* Diagnosis Pelvic pain in female Unspecified symptom associated with female genital organs documented in this encounter [facility] note* Diagnosis Encounter for gynecological examination (general) (routine) without abnormal findings- Primary Screening for cervical cancer Screening for malignant neoplasm of the cervix Encounter for screening for human papillomavirus (HPV) Special screening examination for human papillomavirus (HPV) Encounter for screening mammogram for breast cancer Pelvic pain in female Unspecified symptom associated with female genital organs [facility] Diagnosis Ovarian cyst, complex- Primary Other and unspecified ovarian cyst Pelvic pain in female Unspecified symptom associated with female genital organs [facility] Diagnosis Ovarian cyst, complex- Primary Other and unspecified ovarian cyst Pelvic pain in female Unspecified symptom associated with female genital organs Sterilization documented in this encounter [facility] for referral (narrative)* Diagnostic Procedure Only (Routine) - Authorized Specialty Diagnoses / Procedures Referred By Contac t Referred To Contact [facility] Diagnoses Ovarian cyst, right Procedures US FEMALE PELVIS TRANSVAG US TRANSVAGINAL Gayatri Lenz APRN.PAD MACHINE FEEDER [address] [place] [address] [place] [address] Referral ID Status Reason Start Date Expiration Date Visits Requested Visits Authorized [id number] Authorized Auto-Generat ed Referral 04/02/2023 05/01/2024 1 1 [facility] for referral (narrative)* Diagnostic Procedure Only (Routine) - Closed Specialty Diagnoses / Procedures Referred By Contac t Referred To Contact US IMAGING Diagnoses Ovarian cyst, right Procedures US FEMALE PELVIS TRANSVAG US TRANSVAGINAL Gayatri Lenz APRN.PAD MACHINE FEEDER [address] [place] [address] [place] [address] Referral ID Status Reason Start Date Expiration Date V isits Requested Visits Authorized [id number] Closed Auto-Generate d Referral 04/02/2023 05/01/2024 1 1 [facility] for referral (narrative)* Diagnostic Procedure Only (Routine) - Authorized Specialty Diagnoses / Procedures Referred By Contac t Referred To Contact US IMAGING Diagnoses Cysts of both ovaries Procedures US FEMALE PELVIS TRANSVAG US TRANSVAGINAL Gayatri Lenz APRN.PAD MACHINE FEEDER [address] [place] [address] [place] [address] Referral ID Status Reason Start Date Expiration Date Visits Requested Visits Authorized [id number] Authorized Auto-Generat ed Referral 3 06/28/2024 1 [facility] Diagnostic Procedure Only (Routine) - Closed Specialty Diagnoses / Procedures Referred By Contac t Referred To Contact [facility] Diagnoses Pelvic pain in female Procedures PELVIC US WHI US PELVIC NONOBSTETRIC REAL-TIME IMAGE Ciara Wilson MD [address] [place] [address] Phone: tel: fax: [facility] [address] [place] [address] Referral ID Status Reason Start Date Expiration Date V isits Requested Visits Authorized [id number] Closed Auto-Generate d Referral 11/30/2024 11/30/2025 1 1 [facility] Chief Complaint and Reason for Visit Chief Complaint SCREENING Chief Complaint SCREENING abd pain Advance Directives No Advanced Directives Records Found Advance Directive Response Recorded Date/ Time Living Will No July 04, 015 11:28am Power of Tree Trimmer Helper No July 04, 2015 11:28am Advance Directive Response Recorded Date/ Time Living Will No March 29, 2023 4:40pm Power of Tree Trimmer Helper No March 4:40pm Summary Purpose Family History No Family History Records FoundNo Family History Records Found Additional Source Comments Goals (unrecognized section and content) Goals may be documented in a n alternate sectionGoals may be documented in an alternate sectionGoals may be documented in an alternate section Care Teams (unrecognized sec tion and content) Team Status: Active Member Role Status Dates Dr. Delvin Garcia MD Family Provider Active Dr. Delvin Garcia MD Primary Care Provider Active Team Status: Inactive Member Role Status Dates Dr. Delvin Garcia MD Primary Care Pr matthew, Attending Provider, Referring Provider Active Team Status: Inactive Member Role Status Dates Dr. Delvin Garcia MD Primary Care Provider Active Dr. Frankie Arthur MD Emergency Provider Active Source Comments (unrecognize d section and content) In the event this informatio n is protected by the Federal Confidentiality of Alcohol and Drug Abuse Patient Records regulations: The Federal rules restrict any use of the information to criminally investigate or prosecute any alcohol or drug abuse patient.[facility] event this information is protected by the Federal Confidentiality of Alcohol and Drug Abuse Patient Records regulations: The Federal rules restrict any use of the information to criminally investigate or prosecute any alcohol or drug abuse patient.[facility] the event this information is protected by the Federal Confidentiality of Alcohol and Drug Abuse Patient Records regulations: The Federal rules restrict any use of the information to criminally investigate or prosecute any alcohol or drug abuse patient.[facility] the event this information is protected by the Federal Confidentiality of Alcohol and Drug Abuse Patient Records regulations: The Federal rules restrict any use of the information to criminally investigate or prosecute any alcohol or drug abuse patient.[facility] the event this information is protected by the Federal Confidentiality of Alcohol and Drug Abuse Patient Records regulations: The Federal rules restrict any use of the information to criminally investigate or prosecute any alcohol or drug abuse patient.[facility] the event this information is protected by the Federal Confidentiality of Alcohol and Drug Abuse Patient Records regulations: The Federal rules restrict any use of the information to criminally investigate or prosecute any alcohol or drug abuse patient.[facility] the event this information is protected by the Federal Confidentiality of Alcohol and Drug Abuse Patient Records regulations: The Federal rules restrict any use of the information to criminally investigate or prosecute any alcohol or drug abuse patient.[facility] the event this information is protected by the Federal Confidentiality of Alcohol and Drug Abuse Patient Records regulations: The Federal rules restrict any use of the information to criminally investigate or prosecute any alcohol or drug abuse patient.[facility] the event this information is protected by the Federal Confidentiality of Alcohol and Drug Abuse Patient Records regulations: The Federal rules restrict any use of the information to criminally investigate or prosecute any alcohol or drug abuse patient.[facility] Reason for Visit (unrecogniz ed section and content) Reason Comments Ovarian Cyst Reason Comments Radiology US Specialty Diagnoses / Procedures Referred By Iram martin Referred To Contact US IMAGING Diagnoses Ovarian cyst, right Procedures US FEMALE PELVIS TRANSVAG US TRANSVAGINAL Gayatri Lenz APRN.PAD MACHINE FEEDER [address] [place] [address] [place] [address] Referral ID Status Reason Start Date Expiration Date V isits Requested Visits Authorized [id number] Closed Auto-Generate d Referral 04/02/2023 05/01/2024 1 1 Reason Comments Results Reason Comments Well Woman Reason Comments Follow Up Reason Comments Schedule Surgery Reason Comments Ovarian Cyst INFORMATION SOURCE (unrecogn ized section and content) DATE CREATED AUTHOR 02/11/2025 [facility] DATE CREATED AUTHOR AUTHOR'S ORGANIZ ATION 02/20/2025 [facility] FOR RECORDS PERTAINING TO PATIENTS WHO ARE OR HAVE BEEN ENROLLED IN A CHEMICAL DEPENDENCY/SUBSTANCEABUSE PROGRAM, SOME INFORMATION MAY BE OMITTED. This clinical summary was aggregated from multiple sources. Caution should be exercised in using it in the provision of clinical care. This summary normalizes information from multiple sources, and as a consequence, information in this document may materially change the coding, format and clinical context of patient data. In addition, data may be omitted in some cases. CLINICAL DECISIONS SHOULD BE BASED ON THE PRIMARY CLINICAL RECORDS. [employer] [facility]. provides no warranty or guarantee of the accuracy or completeness of information in this document.
[2025-02-25] MEDS: Lactated Ringers 1,000 ML 15 ML IV (06:00)
--- NOTE | 2025-02-25 06:29 | PRE.ANES_ITS ---
ASA Classification* ASA Classification ASA Classification: 2 Assessment & Plan Anesthesia* Anesthesia Assessment Anesthesia Assessment: Discussed sedation and/or anesthesia options, risks, benefits, and alternatives with patient/parents/legal guardian/POA. Questions invited. The patient/parents/legal guardian/POA seems to understand and agrees to proceed with anesthesia plan. Reviewed the physical assessment, medical history, allergy history and patient home medications list prior to surgery/procedure/anesthetic and documented any changes. Performed airway and anesthesia risk assessments. Anesthesia Type Anesthesia Type: General History Source History Obtained from:: Patient and Chart Anesthesia Focused Assessment* Temperature: 98.7 F Pulse Rate: 71 Blood Pressure: 114/68 Respiratory Rate: 16 Pulse Ox: 99 Oxygen Delivery Method: Room Air Airway Assessment Mouth opens: >3 cm Mallampati Score: II Teeth Condition: Intact (Patient's front incisors, #8 and 9 wiggle slightly.) Neck Range of motion (ROM): Full ROM Labs Anesthesia Preop lab: CBC WBC 8.9 K/mm3 (4.4-11.0) 03/29/23 16:11 03/29/23 RBC 4.50 M/mm3 (4.2-5.4) 03/29/23 16:11 03/29/23 Hgb 13.8 g/dL (12.0-15.0) 03/29/23 16:11 03/29/23 Hct 39.9 % (37-47) 03/29/23 16:11 03/29/23 Plt Count 274 K/mm3 (150-450) 03/29/23 16:11 03/29/23 CHEMISTRY Potassium 3.9 mmol/L (3.5-5.1) 03/29/23 16:11 03/29/23 Sodium 140 mmol/L (136-145) 03/29/23 16:11 03/29/23 BUN 10 mg/dL (7-18) 03/29/23 16:11 03/29/23 Creatinine 0.71 mg/dL (0.55-1.02) 03/29/23 16:11 03/29/23 Glucose 100 mg/dL (74-106) 03/29/23 16:11 03/29/23 TSH 0.62 uIU/mL (0.358-3.74) 08/23/17 08:46 COAG Urine Test Negative Negative 01/06/14 10:30 01/06/14 Pre-Assessment Diagnosis/Proposed Procedure Planned Operative Procedure(s): (R) Laparoscopic right salpingo-oopherectomy, possible laparotomy Anesthesia History 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 When Was Last Pacemaker Check QUESTION #4 FULL TEXT: You/Your Family Experience fever (hyperthermia) with Anesthesia Last Oral Intake Last Oral intake: Last Oral Intake NPO since 20:30 02/25/25 06:00 Meds taken in AM with sips of No 02/25/25 06:00 water? Meds patient instructed to take am of surgery PONV PONV - fast food crew lead: PONV - fast food crew lead Female Yes 02/10/25 09:32 HX of Motion Sickness Yes 02/10/25 09:32 HX of N/V After Surgery No 02/10/25 09:32 Non-Smoker Yes 02/10/25 09:32 Duration of Surgery greater No 02/10/25 09:32 than 60 minutes Number of Risk Factors 3 02/10/25 09:32 PONV Score Moderate Risk 02/10/25 09:32 Height & Weight Height & Weight: Anesthesia: Height & Weight Height 5 ft 6 in 02/25/25 06:00 Weight: 84.3 kg 02/25/25 06:00 Body Mass Index (BMI) 29.9 02/25/25 06:00 Respiratory Assessment Respiratory Assessment - fast food crew lead: Respiratory Tract Infection Hx - fast food crew lead Hx Respiratory Tract Infection No 02/10/25 09:32 STOP Sleep Apnea STOP Sleep Apnea - fast food crew lead: STOP Sleep Apnea - fast food crew lead Hx Hypertension No 02/10/25 09:32 Hx Sleep Apnea No 02/10/25 09:32 CPAP BIPAP Do you snore loudly (louder No 02/10/25 09:32 than talking or can be heard Do you often feel tired/ No 02/10/25 09:32 fatigued/ sleepy during daytime? Has anyone observed you stop No 02/10/25 09:32 breathing during sleep? STOP Results Negative 02/10/25 09:32 QUESTION #5 FULL TEXT : Do you snore loudly (louder than talking or can be heard through closed doors)? Tobacco Use History Tobacco Use History - fast food crew lead: Tobacco Use History - fast food crew lead Tobacco Use Smoking Status Former smoker 02/10/25 09:32 Hx Tobacco Use No 02/10/25 09:32 Years Smoking Packs Smoked per Day Smoking Cessation Date was No - quit smoking greater 02/10/25 09:32 within the last 15 years than 15 years ago Hx Smoking Cessation Date Hx Smoking Cessation Counseling Hematologic Medial History Hematologic Hx - fast food crew lead: Hematologic Medical Hx - oncology rn Hx of Blood Transfusion No 02/10/25 09:32 Hx of Transfusion in last 3 No 02/10/25 09:32 Months Date of Last Transfusion (if within last 3 months) Ever experience any problems No 02/10/25 09:32 with transfusion(s)? Specify any problems Hx of Preganancy in last 3 No 02/10/25 09:32 Months Nurse Filling Out Transfusion VCHRISTIN 02/10/25 09:32 & Questions: Date: 02/10/25 02/10/25 09:32 Time: 09:34 02/10/25 09:32 Patient unable to answer at this time (ie. confused, unrespo /Reproduction History /Reproductive History - fast food crew lead: /Reproductive Hx- fast food crew lead Hx Now No 02/10/25 09:32 Gestational Age (in weeks): EDC: Hx Hx Para Hx Section SAB No 02/10/25 09:32 Active Medications Active Medications: Current Medications Generic Name Dose Route Start Last Admin Trade Name Freq PRN Reason Stop Dose Admin Acetaminophen 1,000 mg 02/25/25 07:25 02/25/25 06:26 Acetaminophen 500 Mg Tablet PO 02/25/25 07:26 1,000 mg PREOP ONE Administration Celecoxib 400 mg 02/25/25 07:25 02/25/25 06:26 Celecoxib 200 Mg Capsule PO 02/25/25 07:26 400 mg PREOP ONE Administration Lactated Ringer's 1,000 mls @ 15 mls/hr 02/25/25 05:45 02/25/25 06:00 IV 15 mls/hr .Q48H CANDIDA Administration PFSH Medical History Wears glasses Alcohol use Back pain Gastric reflux Former smoker History of edema Ileus, unspecified Allergy/AdvReac Type Severity Reaction Status Date / Time No Known Allergies Allergy Verified 02/25/25 06:18 Surgical History Hx of dilation and curettage Hx of tubal ligation Hx of tonsillectomy Social History Smoking Status: Former smoker Review of Systems (Anesthesia) ROS Narrative System reviewed and no additional complaints, except as documented.
[2025-02-25 06:34] LABS: Hematocrit 38.6 % (37-47); Hemoglobin 13.4 g/dL (12.0-15.0); Mean Corp Hgb Conc 34.7 g/dL (32-36); Mean Corpuscular Volume 86.7 fL (81-99); Mean Platelet Vol. 9.9 fl (6.2-12.0); Platelet Count 240 K/mm3 (150-450); RBC Distribution Width CV 12.7 % (11.6-14.6); RBC Distribution Width SD 39.8 fl (35.1-43.9); Red Blood Count 4.45 M/mm3 (4.2-5.4); White Blood Count 6.8 K/mm3 (4.4-11.0)
[2025-02-25 06:38] LABS: Internal QC Validated? YES +Cl - CLEAR BKGD
[2025-02-25 06:39] LABS: Pregnancy, Urine Negative Negative; Record Kit Lot#,Urine Preg 0000962302
--- NOTE | 2025-02-25 07:30 | FALS_PTH ---
PATIENT: AVTAR ROSS LOC: [facility] [place] U#:[id number] AGE/SX: 44/F ROOM: RE02/25/[address]: Dr. Viviana Cronin MD : 1980 BED: DIS: 02/25/2025 SPEC #: [id number] RECD: 02/25/25 09:36 STATUS: ENID REYuli #: [id number] DILLON: 02/25/25 07:[address]: Viviana Cronin DEPT: SURGICAL PATHOLOGY RECD BY: Malachi You ENTERED: 02/25/25 10:50 SP TYPE: FALL TUBES OTHR DR: Dr. Delvin Garcia MD Tissues: A - Fallopian tube Procedures: Surgery Specimen Level II Surgery Specimen Level V HEADER OPERATION: Laparoscopic right salpingo-oopherectomy, left salpingectomy PRE-OP DIAGNOSIS: Pelvic pain, right ovarian cyst, sterilization request TISSUE SUBMITTED: A- Left fallopian tube, right fallopian tube, right ovary MICROSCOPIC DIAGNOSIS A. Right and left fallopian tubes, right ovary, bilateral salpingectomy and right oophorectomy: - Ovary with large benign simple cyst (8.5 cm) - see note. - One fallopian tube with paratubal cysts; complete luminal cross-section confirmed. - A second fallopian tube is not identified. 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 MICROSCOPIC DESCRIPTION Slides are reviewed. GROSS DESCRIPTION A. Received in formalin labeled with the patient's name and date of . Designated as left fallopian tube, right fallopian tube and ovary is an undesignated fallopian tube and cyst, as follows: Fallopian tube: 7.1 x 0.4 cm red-purple fimbriated fallopian tube with multiple paratubal cysts (0.1 cm to 0.5 cm) and a mane metallic clamp (suspicious for contraceptive device). Cyst: 45.6 g, partially deflated, suresh-pink to white wrinkled cyst, 8.5 x 6.7 x 1.6 cm. There is a minimal amount of attached, somewhat cystic soft tissue. Opening reveals straw-colored serous fluid and a smooth cyst wall, devoid of identifiable excrescences. Sectioning of the attached soft tissue reveals pink-red edematous and hemorrhagic cut surfaces. No definitive fallopian tube or ovarian parenchyma is identified within the attached soft tissue. Cycling Instructor sections are submitted as follows: A1-A2: Fimbriated fallopian tubeA3-A4: Cyst wallA5-A6: Cyst soft tissue SC 02/25/2025 CPT:79598,[id number]
[2025-02-25] MEDS: Lactated Ringers 1,000 ML 1000 ML IV (07:38)
[2025-02-25] MEDS: Lidocaine 1% (5 ml sdv) 5 ML Vial IV (07:44)
[2025-02-25] MEDS: DiphenhydrAMINE 50 MG/ML Syringe 12.5 MG IV (07:54)
--- NOTE | 2025-02-25 07:55 | DCINST_ITS ---
Discharge Instructions DC O2, CPAP, BIPAP needs Home O2 Discharge instructions: No Dressing / Incision Discharge Activity: May Shower Return to work on:: 03/01/25 Additional Activity Instructions:: Ambulate often the next week after surgery. No lifting > 20 lbs x 2 weeks. Nothing in the vagina for 5 days. Dressing / Incision Call your doctor if your incision/area has: Continuous Slow Oozing, Sudden Increased Bleeding, Increased Pain/ Swelling, Increased Redness and Foul Smelling Discharge Call your doctor if you observe: Fever of 101 or Higher Cleanse incision/area with: Soap & Water Follow Up Care Please Follow Up With: Viviana Cronin MD When: Call [phone] or send a [employer] message as needed for questions. Follow up in 2 weeks as needed Test Results: Test results from this visit will be discussed in further detail at your follow- up appointment, if applicable. Discharge Plan Admission Attending Provider: Viviana Cronin Primary Care Provider: Delvin Garcia Instructions Print Language: Colombian Discharge Orders/Prescriptions Prescriptions: New acetaminophen [Acetaminophen Extra Strength] 500 mg tablet 1,000 mg PO Q8H PRN PRN (Reason: fever or pain) 20 Days Qty: 60 0RF ibuprofen 600 mg tablet 600 mg PO Q6H PRN (Reason: Pain) 20 Days Qty: 60 1RF Other Ambulatory Orders: ,Urine (Routine) Timeframe: 20250225 Facility: [facility] - Location: Laboratory Ordered By: Dr. Alonso Carrasco Referrals / Follow Up: Delvin Garcia MD [Primary Care Provider] - Disposition Disposition (needs filled in before D/C Order can be placed): Home, Self Care
--- NOTE | 2025-02-25 08:57 | PCM.OPRPT ---
Problems Associated Problem List Diagnoses (1) Pelvic pain: (2) Cyst of right ovary: Operative Report (Standard) Operative Information Date of Procedure: 02/25/25 Pre-Operative Diagnosis: pelvic pain, right ovarian cyst Post-Operative Diagnosis: same Surgery/Procedure Performed: laparoscopic left salpingectomy, right salpingoohporectomy customer program manager: Yes Boat And Plant Utility Supervisor: Tre Bradley Tasks completed by certified surgical tech/first assistant: Closing, Trocar and Retracting Additional assistant center manager?: Yes Additional Edge Cutting Machine Operator #2: Efrain White MS3 Tasks completed by assistant center manager #2: Closing and Retracting Additional assistant center manager?: No Type of Anesthesia: General RN Documented Start/Stop Times: Operation Date: 02/25/25 07:30 Case Time Into Pre-Op 02/25/25 05:41 Anesthesia Start 02/25/25 07:38 Into Room 02/25/25 07:38 Procedure Start 02/25/25 08:02 Procedure Start Time: 08:02 Procedure Stop Time: 09:04 Select all DRAINS/GRAFTS/IMPLANTS that apply: None Estimated Blood Loss: 10 Fluids Replaced: 1000 cc Specimen collected: Yes Description of specimen(s) removed: left fallopian tube with filshie clip, right tubal remnant and ovary with cyst Description of surgery: The patient was taken to the operating room where she was prepped and draped in the dorsolithotomy position. A weighted speculum was placed in the vagina and the anterior lip of the cervix was grasped with a tenaculum. The Shannon uterine manipulator was placed and the remainder of the instruments were removed from the vagina. Attention was turned to the abdomen. All port sites were infiltrated with 0.5% Marcaine before skin incisions were made. A 5 mm [intraumbilical] incision was made. The anterior abdominal wall was tented up with 2 towel clamps while a 5 mm blade less trocar and sleeve were [directly inserted]. Intraperitoneal placement was confirmed with the laparoscope. The pneumoperitoneum was created and the underlying abdominal contents were intact. The patient was placed in Trendelenburg. Right and left lower quadrant ports were placed under direct visualization lateral to the inferior epigastric vessels. The bowel was swept away and the above findings were noted. The LigaSure device was used to clamp seal and transect the antimesenteric portions of the right tube to the cornual insertion of the uterus. The tube was amputated from the uterus and the pedicles were all confirmed to be hemostatic. The same procedure was performed on the contralateral side. The specimens were brought out through a 5 mm port. The pedicles were again examined and found to be hemostatic. The lateral ports were removed under direct visualization and no active bleeding was noted. The pneumoperitoneum was released. The skin incisions were closed with Monocryl suture in a subcuticular fashion and skin glue []. The vaginal instruments were removed and the vaginal sweep was completed by me. The procedure was performed by me with assistance other than as dictated above. All sponge and needle counts were correct and the patient was taken to the recovery room in stable condition. Start time * Stop time* Surgical Findings: normal uterus, cervix, vagina, and peritoneal cavity. Right enlarged ovarian cyst with straw colored fluid, left tube with Filshie clip, right tube w/ small remnant Complications Complications: No Admit VTE Documentation VTE Present on Admission: No VTE Mechan Device Prophylaxis: SCD's VTE Pharm Prophylaxis ordered?: No Reason prophylaxis not ordered: Treatment Not Indicated
[2025-02-25] MEDS: fentaNYL 100 MCG/2 ML Ampul 200 MCG IV (09:09)
--- NOTE | 2025-02-25 10:55 | PCM.POST.ANE ---
Anesthesia: Postop Eval I Current Vital Signs Temperature: 97 F Pulse Rate: 68 Blood Pressure: 116/71 Respiratory Rate: 16 Pulse Ox: 100 Oxygen Delivery Method: Simple Mask Oxygen Flow Rate (L/min): 6 Assessment Airway patent: Yes Spontaneous unlabored respirations: Yes Mental status: Awake and Calm nausea: No Vomiting: No Anesthesia Complication: No Fluid Hydration Crystalloid volume administer (ml): 1,000 Total IV fluid infused: 1,000 Progress Note Anesthesia document: Postop Eval 1 completed: Yes
== END 2025-02-25 10:46 | disposition home or self-care (01) ==
LOC: SDC 05:21 → AC 05:25
PROVIDERS: PCP Family Medicine; Referring Provider Obstetrics & Gynecology; Visit Provider Obstetrics & Gynecology
PROC: (CPT 58720; principal; 2025-02-25 07:15)
DX: N83.201 Unspecified ovarian cyst, right side (principal); Z30.2 Encounter for sterilization; Z79.899 Other long term (current) drug therapy; Z87.891 Personal history of nicotine dependence; Z97.5 Presence of (intrauterine) contraceptive device; K21.9 Gastro-esophageal reflux disease without esophagitis; N83.8 Other noninflammatory disorders of ovary, fallopian tube and broad ligament
CPT/HCPCS: 58661; 00840; 81025; 85027; 88302; 88307; J2405

== ENCOUNTER → 2025-05-27 | Outpatient (CLI) | payer OTHER, SELFPAY ==
--- NOTE | 2025-05-27 09:40 | RAD_ITS ---
PROCEDURE: CERV SPINE 2 OR 3 VIEWS 05/27/2025 REASON FOR EXAM: NECK PAIN TECHNIQUE: Procedure Code: RADSPCL Modality: DX Procedure: CERV SPINE 2 OR 3 VIEWS COMPARISON: None. FINDINGS: BONES: No fracture or focal osseous lesion. Anatomic spinal alignment. Straightening of the normal cervical lordosis. DISC/DEGENERATIVE CHANGES: Mild C6-C7 disc space narrowing with vertebral endplate osteophytes. The remaining disc spaces are preserved. SOFT TISSUES: No acute abnormality seen. RAD/Cerv Spine 2 or 3 Views IMPRESSION: 1. No acute osseous abnormality. 2. Straightening of the cervical spine, may reflect muscle spasm. 3. Mild C6-C7 degenerative disc disease. Reading Location: [id number]
== END | disposition home or self-care (01) ==
LOC: MTRAD 09:38
PROVIDERS: PCP Family Medicine; Referring Provider Family Medicine; Visit Provider Family Medicine
DX: M54.12 Radiculopathy, cervical region (principal)
CPT/HCPCS: 72040